=== PATIENT | male | born 1945 | race Caucasian/White ===

== ENCOUNTER → 2016-03-22 | Outpatient (CLI) | payer OTHER, MEDICARE ==
[~2016-03-22] MED LIST: AMLO-110 PO; AMXCH250 PO; ASPEC81 PO; ASPI81TA21 PO; CHOL100027 PO; CLOP1TAB15 PO; CRDCD120 PO; DILT120T3 PO; ENOX100I SC; FIBER PO; FLAXOIL2 PO; FURO20TA PO; IMDSR30 PO; ISOS30TA35 PO; LOSA1TAB PO; MULT-506 PO; NTRGSL/4 UT; OMEG12006 PO; PRAV80TA PO; RANO1000 PO; amiodarone IV
--- NOTE | 2016-03-22 12:42 | DIAGNOSTIC IMAGING REPORT ---
CT SCAN OF THE CHEST WITHOUT IV CONTRAST CLINICAL HISTORY: Follow-up pulmonary nodule. COMPARISON STUDY: Chest CT dated 11/02/2015. Abdominal CT dated 06/08/2005. TECHNIQUE: CT scan of the thorax was performed from the thoracic inlet to the upper abdomen. Images are reviewed in the axial, sagittal, and coronal planes. IV contrast was not administered for this examination as per the front clinician. CT DOSE: 556.78 mGy.cm FINDINGS: Thyroid: Imaged portions of the thyroid gland are normal in size and attenuation. Thoracic aorta: There is atherosclerotic calcification of the thoracic aorta, which is normal in caliber and demonstrates standard 3-vessel arch anatomy. Heart: The patient is status post midline sternotomy and aortic valve surgery. The heart is mildly enlarged and without pericardial effusion. The coronary arteries are densely calcified. Lungs and pleural spaces: Scarring with possible postoperative change is seen at the left apex. No airspace consolidation or pleural effusion is identified. There is a left apical granuloma. The right upper lobe nodular density seen on 11/02/2015 has resolved and was likely related to atelectasis/inflammation. No concerning pulmonary lesion is seen on today's examination. The trachea and central airways are clear. Mediastinum: There is no mediastinal lymphadenopathy. Reyna: Not well assessed without IV contrast. Axillae: There is no axillary lymphadenopathy. Upper abdomen: There is a tiny hiatal hernia. There is cortical atrophy of the partially imaged kidneys. Skeletal structures: The skeletal structures are osteopenic. Mild degenerative change is noted throughout the thoracic spine. No lytic or blastic bony lesions are seen. IMPRESSION: 1. There is no airspace consolidation or pleural effusion. 2. No concerning pulmonary lesion is identified. The pleural-based nodular density in the right upper lobe seen on 11/02/2015 has resolved and was likely related to inflammation/atelectasis. 3. Mild cardiac enlargement. 4. Additional findings as above. Electronically signed by: Ehsan Reynoso M.D. 03/22/2016 12:40 PM Dictated Date/Time: 03/22/2016 12:28 PM
== END | disposition home or self-care (01) ==
LOC: C.CTS 11:10
PROVIDERS: ATTEND Internal Medicine
DX: R91.1 Solitary pulmonary nodule (principal)

== ENCOUNTER → 2016-05-10 | Outpatient (CLI) | payer OTHER, MEDICARE ==
[2016-05-10 12:43] LABS: ALT/SGPT 29 U/L (12-78); BLOOD UREA NITROGEN 20 mg/dl (7-18); BUN/CREATININE RATIO 20.5 (10-20); CALCIUM 9.1 mg/dl (8.5-10.1); CARBON DIOXIDE 29 mmol/L (21-32); CHLORIDE 105 mmol/L (98-107); CHOLESTEROL 161 mg/dl (0-200); CREATININE 0.99 mg/dl (0.60-1.40); GLUCOSE 91 mg/dl (70-99); POTASSIUM 4.3 mmol/L (3.5-5.1); SODIUM 141 mmol/L (136-145); TRIGLYCERIDES 84 mg/dl (0-150); VERY LOW DENSITY LIPOPROT CALC 17 mg/dl
[2016-05-10 12:48] LABS: ALB/GLOB RATIO 1.3 (0.9-2); ALKALINE PHOSPHATASE 65 U/L (45-117); AST/SGOT 25 U/L (15-37); CHOLESTEROL/HDL RATIO 2.9; HDL CHOLESTEROL 55 mg/dl; LDL CHOLESTEROL CALCULATED 89 mg/dl
== END | disposition home or self-care (01) ==
LOC: C.LABBFT 07:44
PROVIDERS: ATTEND Internal Medicine
DX: E78.5 Hyperlipidemia, unspecified (principal); I10 Essential (primary) hypertension; I25.10 Atherosclerotic heart disease of native coronary artery without angina pectoris

== ENCOUNTER → 2016-09-05 | Outpatient (CLI) | payer OTHER, MEDICARE ==
--- NOTE | 2016-09-18 09:58 | CODING QUERY MEDICAL NECESSITY ---
SUPPORTING DIAGNOSIS NEEDED Dr. Canada, A supporting diagnosis is required for the test/procedure performed on this patient in order for us to be reimbursed by the patient's insurance. Please provide a supporting diagnosis for the following test/procedure listed below next to the test name along with your signature. *If there is no additional diagnosis for this patient that would support the following test/procedure please document that below next to the test/procedure. Test(s)/Procedure(s) that require a supporting diagnosis: * [id number] PSA DIAGNOSIS: DATE OF SERVICE: 09/05/16 Provider Signature: Date: Thank you Sam Pleitez [facility] Information Management Once completed, please kindly fax back to [phone] For questions please call [phone]
== END | disposition home or self-care (01) ==
LOC: C.LABBFT 09:54
PROVIDERS: ATTEND Urology
DX: N20.0 Calculus of kidney (principal); C61 Malignant neoplasm of prostate; N40.1 Benign prostatic hyperplasia with lower urinary tract symptoms

== ENCOUNTER 2016-09-19 14:53 | Observation (INO) | payer OTHER, MEDICARE ==
[~2016-09-19] VITALS: Ht 175.3 cm; Wt 88.9 kg
[~2016-09-19 14:53] MED LIST changes: -ASPI81TA21 PO; -CRDCD120 PO; -DILT120T3 PO; -IMDSR30 PO; -ISOS30TA35 PO
--- NOTE | 2016-09-19 15:44 | EMERGENCY ROOM VISIT NOTE ---
History First contact with patient: 15:09 Chief Complaint: CHEST PAIN Stated Complaint: CHEST PAIN SENT BY DR PALOMARES Nursing Triage Summary: Pt states hx heart surgery, getting SOB lately. Last night after feeding the birds he got very SOB, chest pain and took Nitro. The nitro helped. This am went to work, pain again, took nitro, got up and it started again so I took another nitro and when I got home Micheal's nurse said to take another so I did." Left side chest discomfort. "toothache in my left arm" History of Present Illness The patient is a 71 year old male with a past medical history of quadruple coronary artery bypass, 5 coronary artery stents, and cardiac ablation who presents to the Emergency Room with complaints of multiple episodes of chest pain. Last night the patient describes a feeling of chest pressure with left arm and shoulder weakness. He took a nitroglycerin and the episode resolved, but shortly thereafter resumed with less intensity. He describes the intensity last night was initially an 8 out of 10 with some radiation to the back as well as to his left shoulder. This morning he woke up and went to work and had similar chest pain with radiation and took another dose of nitroglycerin. The discomfort resolved but then quickly resumed, although the intensity was not as significant. He took another dose of nitroglycerin, and his discomfort did not resolve so he went home and called Dr. Palomares's office. They instructed him to come to the ED immediately. The patient states that he currently has 2 out of 10 chest discomfort that again feels like pressure over his chest with left shoulder weakness. She denies any shortness of breath, fever, chills, abdominal pain, nausea, vomiting, or any other acute symptoms. Review of Systems See HPI for pertinent positives and negatives. A total of ten systems were reviewed and were otherwise negative. Past Medical/Surgical History Medical Problems: (1) Prostate cancer Surgical Problems: (1) H/O heart artery stent (2) History of quadruple bypass Family History FH: CAD (coronary artery disease) Social History Smoking Status: Former Smoker Alcohol Use: none Marital Status: Housing Status: lives with family Current/Historical Medications Scheduled Amlodipine (Norvasc), 2.5 MG PO DAILY Aspirin Enteric Coated (Ecotrin Or Generic), 81 MG PO DAILY Cholecalciferol (Vitamin D 1000 Unit), 1,000 INTER.UNIT PO HS Clopidogrel (Plavix), 75 MG PO HS Flaxseed (Linseed) (Flax Oil), 1 TAB PO BID Furosemide (Lasix), 20 MG PO HS Losartan Potassium (Cozaar), 25 MG PO DAILY Multivitamin (Multivitamin), 1 TAB PO DAILY Nitroglycerin (Nitrostat), 0.4 MG UT PRN [place]-3 Fatty Acids ([place] 3), 1 CAP PO BID Pravastatin Sodium (Pravachol), 80 MG PO HS Ranolazine (Ranexa), 1,000 MG PO BID Allergies Coded Allergies: No Known Allergies (Verified , 09/19/16) Physical Exam Vital Signs Date Time Temp Pulse Resp B/P (MAP) Pulse Ox O2 Delivery O2 Flow Rate FiO2 09/19/16 16:46 76 18 128/72 98 Room Air 09/19/16 16:30 67 09/19/16 15:00 93 Room Air 09/19/16 14:55 36.7 75 18 145/84 93 Room Air Physical Exam GENERAL: Awake, alert, well-appearing, in no distress HENT: Normocephalic, atraumatic. Oropharynx unremarkable. EYES: Normal conjunctiva. Sclera non-icteric. NECK: Supple. No nuchal rigidity. RESPIRATORY: Clear to auscultation. CARDIAC: Regular rate, normal rhythm. Extremities warm and well perfused. Pulses equal. ABDOMEN: Soft, non-distended. No tenderness to palpation. No rebound or guarding. No masses. RECTAL: Deferred. MUSCULOSKELETAL: Chest examination reveals no tenderness. The back is symmetrical on inspection without obvious abnormality. LOWER EXTREMITIES: Calves are equal size bilaterally and non-tender. No edema. No discoloration. NEURO: Normal sensorium. No sensory or motor deficits noted. SKIN: No rash or jaundice noted. Medical Decision & Procedures Laboratory Results 09/19/16 16:00 Red Blood Count 4.23, Mean Corpuscular Volume 96.9, Mean Corpuscular Hemoglobin 32.4, Mean Corpuscular Hemoglobin Concent 33.4, Mean Platelet Volume 8.6, Neutrophils (%) (Auto) 50.4, Lymphocytes (%) (Auto) 33.3, Monocytes (%) (Auto) 11.1, Eosinophils (%) (Auto) 4.6, Basophils (%) (Auto) 0.3, Neutrophils # (Auto ) 2.96, Lymphocytes # (Auto) 1.96, Monocytes # (Auto) 0.65, Eosinophils # (Auto ) 0.27, Basophils # (Auto) 0.02 09/19/16 16:00 Test 09/19/16 15:34 09/19/16 16:00 Creatine Kinase MB Ratio (0-3.0) White Blood Count 5.88 K/uL (4.8-10.8) Red Blood Count 4.23 M/uL (4.7-6.1) Hemoglobin 13.7 g/dL (14.0-18.0) Hematocrit 41.0 % (42-52) Mean Corpuscular Volume 96.9 fL (80-100) Mean Corpuscular Hemoglobin 32.4 pg (25-34) Mean Corpuscular Hemoglobin Concent 33.4 g/dl (32-36) Platelet Count 177 K/uL (130-400) Mean Platelet Volume 8.6 fL (7.4-10.4) Neutrophils (%) (Auto) 50.4 % Lymphocytes (%) (Auto) 33.3 % Monocytes (%) (Auto) 11.1 % Eosinophils (%) (Auto) 4.6 % Basophils (%) (Auto) 0.3 % Neutrophils # (Auto) 2.96 K/uL (1.4-6.5) Lymphocytes # (Auto) 1.96 K/uL (1.2-3.4) Monocytes # (Auto) 0.65 K/uL (0.11-0.59) Eosinophils # (Auto) 0.27 K/uL (0-0.5) Basophils # (Auto) 0.02 K/uL (0-0.2) RDW Standard Deviation 45.8 fL (36.4-46.3) RDW Coefficient of Variation 13.0 % (11.5-14.5) Immature Granulocyte % (Auto) 0.3 % Immature Granulocyte # (Auto) 0.02 K/uL (0.00-0.02) Anion Gap 6.0 mmol/L (3-11) Est Creatinine Clear Calc Drug Dose 77.9 ml/min Estimated GFR () 88.6 Estimated GFR (Non- 76.5 BUN/Creatinine Ratio 18.9 (10-20) Calcium Level 9.2 mg/dl (8.5-10.1) Total Bilirubin 0.5 mg/dl (0.2-1) Aspartate Amino Transf (AST/SGOT) 25 U/L (15-37) Alanine Aminotransferase (ALT/SGPT) 31 U/L (12-78) Alkaline Phosphatase 66 U/L (45-117) Creatine Kinase MB 3.1 ng/ml (0.5-3.6) Troponin I < 0.015 ng/ml (0-0.045) Total Protein 7.0 gm/dl (6.4-8.2) Albumin 3.7 gm/dl (3.4-5.0) Globulin 3.3 gm/dl (2.5-4.0) Albumin/Globulin Ratio 1.1 (0.9-2) Medications Administered Medications (Trade) Dose Ordered Sig/Katey Route Start Time Stop Time Status Last Admin Dose Admin Nitroglycerin (Nitroglycerin 2% Oint) 1 inch NOW ONCE EXT 09/19/16 15:45 09/19/16 15:46 DC 09/19/16 16:13 1 INCH Medical Decision Patient is a 71 year old male that presents with multiple episodes of chest pain Etiologies such as cardiac ischemia, aortic dissection, pulmonary embolism, pneumonia, pneumothorax, musculoskeletal, infections, gastrointestinal, as well as others were entertained. Labs: CBC, BMP, Troponin, CKMB Medications: Nitro Paste Imaging: CXR EKG Impression Primary Impression: Exertional chest pain Additional Impressions: History of coronary artery bypass graft x 3 History of coronary artery stent placement Patient is a 71 year old male that presents with exertional chest pain - EKG appear unchanged from previous EKG last year - Troponin < 0.015 - CBC and CMP appear within normal limits - Remaining chest pain resolved with Nitro paste - Discussed patient with [facility] who will admit patient for evaluation Departure Information Dispostion Admitted as an inpatient Condition GOOD Referrals Jerry Roman M.D. (PCP) Patient Instructions My [facility] Problem Qualifiers
[2016-09-19] MEDS ORDERED: NITROGLYCERIN OINT 2% 1GM PACKET EXT ONE (15:45)
[2016-09-19] MEDS ORDERED: ASPI81TA21 PO (16:10)
[2016-09-19 16:11] LABS: BASO % 0.3 %; BASO ABS # 0.02 K/uL (0-0.2); COMPLETE YES; EOS % 4.6 %; IG% 0.3 %; LYMPH % 33.3 %; LYMPH ABS # 1.96 K/uL (1.2-3.4); MEAN CELL VOLUME 96.9 fL (80-100); MEAN CORPUSCULAR HEMOGLOBIN 32.4 pg (25-34); MEAN CORPUSCULAR HGB CONC 33.4 g/dl (32-36); MEAN PLATELET VOLUME 8.6 fL (7.4-10.4); MONO % 11.1 %; NEUT % 50.4 %; PLATELET COUNT 177 K/uL (130-400); RED BLOOD COUNT 4.23 M/uL (4.7-6.1); WHITE BLOOD COUNT 5.88 K/uL (4.8-10.8)
--- NOTE | 2016-09-19 16:26 | DIAGNOSTIC IMAGING REPORT ---
CHEST ONE VIEW PORTABLE CLINICAL HISTORY: 71 years-old Male presenting with Chest Pain. TECHNIQUE: Portable upright AP view of the chest was obtained. COMPARISON: Chest CT from March 30, 2016. FINDINGS: Median sternotomy wires, aortic valve prosthesis and mediastinal surgical clips again noted. Cardiomediastinal silhouette normal apart from suggestion of mild enlargement of the main pulmonary artery. Lungs and pleural spaces clear. Osseous structures and upper abdomen normal. IMPRESSION: 1. No convincing evidence of acute cardiopulmonary disease. Electronically signed by: Porfirio Bryant M.D. 09/19/2016 4:25 PM Dictated Date/Time: 09/19/2016 4:23 PM
[2016-09-19 16:28] LABS: ALT/SGPT 31 U/L (12-78); AST/SGOT 25 U/L (15-37); BLOOD UREA NITROGEN 19 mg/dl (7-18); BUN/CREATININE RATIO 18.9 (10-20); CALCIUM 9.2 mg/dl (8.5-10.1); CARBON DIOXIDE 30 mmol/L (21-32); CHLORIDE 106 mmol/L (98-107); GLUCOSE 80 mg/dl (70-99); POTASSIUM 3.8 mmol/L (3.5-5.1); SODIUM 142 mmol/L (136-145)
[2016-09-19 16:33] LABS: ALB/GLOB RATIO 1.1 (0.9-2); ALKALINE PHOSPHATASE 66 U/L (45-117)
--- NOTE | 2016-09-19 18:53 | History and Physical ---
History & Physical Date & Time of Service: Sep 19, 2016 at 18:35 Chief Complaint: Chest Pain Sent By Dr Burton Primary Care Physician: Jerry Roman M.D. History of Present Illness Source: patient 71 year old male with PMh of quadruple bypass, 5 stent placements and cardiac ablation presented with worsening chest pain. The chest pain started last night while he was walking out to take the garbage and when he was feeding his birds. The pain came on suddenly. He took a nitro and the pain subsided. It radiated to his shoulder blades, left neck and pain. He rated the pain as a 7/10. He then woke up this morning and when he went to work and started shoveling dirt he started having the chest pain. He took 2 nitros but the pain did not subside. He went home from work and phoned doctor abbie office and was instructed to come to the emergency department. He has never had chest pain at rest and will occasionally get chest pain on exertion, but he says he often stops before the chest pain occurs. He said he was able to walk for 45 minutes on the treadmill and not get any chest pain. He says he will occasionally get chest pain when walking up an incline. He has a history of quadruple bypass in 2011 and a valve replacement and he has had 5 stents placed between 2011 and 2014. He sees Dr. Burton every 3 months as an outpatient. He said his last echo was earlier this year. Past Medical/Surgical History Medical Problems: (1) Prostate cancer Permanent Comment: Rising PSA to 5.2 Status post ultrasound-guided biopsies revealing adenocarcinoma Nel 3+3, biopsy stage T2c Status post seed implant with cesium 131 as monotherapy 01/13/2010 Status: Resolved Family History FH: CAD (coronary artery disease) Mom had PA at 55 Dad had CHF and at 89 Social History Smoking Status: Former Smoker (40+pack years) Alcohol Use: none Drug Use: none Marital Status: Housing status: lives with family Occupational Status: employed Immunizations History of Influenza Vaccine: No History of Tetanus Vaccine?: Yes History of Pneumococcal: No History of Hepatitis B Vaccine: No Multi-Drug Resistant Organisms History of MDRO: No Allergies Coded Allergies: No Known Allergies (Verified , 09/19/16) Home Medications Scheduled Amlodipine (Norvasc), 2.5 MG PO DAILY Aspirin Enteric Coated (Ecotrin Or Generic), 81 MG PO DAILY Cholecalciferol (Vitamin D 1000 Unit), 1,000 INTER.UNIT PO HS Clopidogrel (Plavix), 75 MG PO HS Flaxseed (Linseed) (Flax Oil), 1 TAB PO BID Furosemide (Lasix), 20 MG PO HS Losartan Potassium (Cozaar), 25 MG PO DAILY Multivitamin (Multivitamin), 1 TAB PO DAILY Nitroglycerin (Nitrostat), 0.4 MG UT PRN [place]-3 Fatty Acids ([place] 3), 1 CAP PO BID Pravastatin Sodium (Pravachol), 80 MG PO HS Ranolazine (Ranexa), 1,000 MG PO BID Review of Systems Constitutional: No fever, No chills, No sweats Eyes: No worsening of vision, No diplopia ENT: No hearing loss Respiratory: No cough, No sputum, No shortness of breath, No dyspnea on exertion Cardiovascular: + chest pain, No orthopnea, No edema, No claudication, No palpitations Abdomen: No pain, No nausea, No vomiting Physical Exam Vital Signs Date Time Temp Pulse Resp B/P (MAP) Pulse Ox O2 Delivery O2 Flow Rate FiO2 09/19/16 16:46 76 18 128/72 98 Room Air 09/19/16 16:30 67 09/19/16 15:00 93 Room Air 09/19/16 14:55 36.7 75 18 145/84 93 Room Air General Appearance: WD/WN, no apparent distress Eyes: normal inspection, PERRL, sclerae normal ENT: hearing grossly normal, pharynx normal Neck: supple, no JVD, no carotid bruits Respiratory/Chest: lungs clear, no respiratory distress, no accessory muscle use Cardiovascular: regular rate, rhythm, no edema, normal peripheral pulses, + systolic murmur (2/6 murmur heard best at LUSB) Abdomen/GI: normal bowel sounds, non tender, soft Neurologic/Psych: normal mood/affect, oriented x 3 Skin: normal color, warm/dry, no rash Diagnostics Laboratory Results Results Past 24 Hours Test 09/19/16 15:34 09/19/16 16:00 Range/Units Creatine Kinase MB Ratio 0-3.0 White Blood Count 5.88 4.8-10.8 K/uL Red Blood Count 4.23 4.7-6.1 M/uL Hemoglobin 13.7 14.0-18.0 g/dL Hematocrit 41.0 42-52 % Mean Corpuscular Volume 96.9 80-100 fL Mean Corpuscular Hemoglobin 32.4 25-34 pg Mean Corpuscular Hemoglobin Concent 33.4 32-36 g/dl Platelet Count 177 130-400 K/uL Mean Platelet Volume 8.6 7.4-10.4 fL Neutrophils (%) (Auto) 50.4 % Lymphocytes (%) (Auto) 33.3 % Monocytes (%) (Auto) 11.1 % Eosinophils (%) (Auto) 4.6 % Basophils (%) (Auto) 0.3 % Neutrophils # (Auto) 2.96 1.4-6.5 K/uL Lymphocytes # (Auto) 1.96 1.2-3.4 K/uL Monocytes # (Auto) 0.65 0.11-0.59 K/uL Eosinophils # (Auto) 0.27 0-0.5 K/uL Basophils # (Auto) 0.02 0-0.2 K/uL RDW Standard Deviation 45.8 36.4-46.3 fL RDW Coefficient of Variation 13.0 11.5-14.5 % Immature Granulocyte % (Auto) 0.3 % Immature Granulocyte # (Auto) 0.02 0.00-0.02 K/uL Sodium Level 142 136-145 mmol/L Potassium Level 3.8 3.5-5.1 mmol/L Chloride Level 106 98-107 mmol/L Carbon Dioxide Level 30 21-32 mmol/L Anion Gap 6.0 3-11 mmol/L Blood Urea Nitrogen 19 7-18 mg/dl Creatinine 1.00 0.60-1.40 mg/dl Est Creatinine Clear Calc Drug Dose 77.9 ml/min Estimated GFR () 88.6 Estimated GFR (Non- 76.5 BUN/Creatinine Ratio 18.9 10-20 Random Glucose 80 70-99 mg/dl Calcium Level 9.2 8.5-10.1 mg/dl Total Bilirubin 0.5 0.2-1 mg/dl Aspartate Amino Transf (AST/SGOT) 25 15-37 U/L Alanine Aminotransferase (ALT/SGPT) 31 12-78 U/L Alkaline Phosphatase 66 45-117 U/L Creatine Kinase MB 3.1 0.5-3.6 ng/ml Troponin I < 0.015 0-0.045 ng/ml Total Protein 7.0 6.4-8.2 gm/dl Albumin 3.7 3.4-5.0 gm/dl Globulin 3.3 2.5-4.0 gm/dl Albumin/Globulin Ratio 1.1 0.9-2 CXR normal Impression Assessment and Plan 71 year old male with PMHx of quadruple bypass and 5 stents presented with chest pain Chest pain - admit to telemetry under observation - EKG with widened QRS and Right axis deviation - 1st troponin negative, follow serial troponins - continue nitro prn for chest pain CAD - history of quadruple bypass and 5 stents placed - aspirin, plavix, lasix, pravastatin, ranexa HTN - currently well controlled - norvasc and lasix HLD - pravastatin - check lipid panel Hx of Prostate Cancer (2009) - controlled and in remission DVT prophylaxis - TEDS Dispo - Telemetry Resident Physician Supervision Note: I was present with Dr. Hayes during the history and exam. I discussed the case with the resident and agree with the findings and plan as documented in the note. Any exceptions or clarifications are listed here: 71 y/o M extensive Hx of CAD Presenting with intermittent CP - he had a CABG in 2011 and 5 stents placed since then He is pain-free at the time of admission OE AAO x 3 S1,2 R CTAB NT, ND No CCE P: Will obtain serial enzymes Monitor overnight Will contact cardio if pain recurs or if f/u trop is + Above discussed with pt and resident Documented By: Aamir Christian Level of Care Telemetry VTE Prophylaxis VTE Risk Assessment Done? Y/N: Yes Risk Level: Moderate Given or contraindicated: T.E.D. Stockings
--- NOTE | 2016-09-19 18:57 | EMERGENCY ROOM VISIT NOTE ---
History Report prepared by Yanna: Danielle Sapp Under the Supervision of: Dr. Bulmaro Lao M.D. First contact with patient: 15:08 Chief Complaint: CHEST PAIN Stated Complaint: CHEST PAIN SENT BY DR BURTON Nursing Triage Summary: Pt states hx heart surgery, getting SOB lately. Last night after feeding the birds he got very SOB, chest pain and took Nitro. The nitro helped. This am went to work, pain again, took nitro, got up and it started again so I took another nitro and when I got home Micheal's nurse said to take another so I did." Left side chest discomfort. "toothache in my left arm" History of Present Illness The patient is a 71 year old male who presents to the Emergency Room with complaints of 2 episodes of left sided chest pain beginning last night. He rates his pain as 8/10 in severity. The patient states that last night he experienced an episode of chest pain. He describes the pain as a pressure sensation. He notes the pain radiated into his back and left shoulder. The patient took a Nitro which helped relieve the pain. He went to bed and this morning woke up feel well. He says he was at work shoveling dirt when he experienced another episode of chest pain. It was the same pain he experienced last night. The patient took a Nitro which did help for a few seconds until the pain returned. He called Dr. Burton's nurse who told him to take another Nitro and go to the ED. The patient states slight exertion when the pain began but notes he was not exerting himself more than normal. The patient did experience shortness of breath during the episodes. He denies any other symptoms at this time. He has an extensive cardiac history including Bypass and 5 stents. Source of History: patient Onset: last night Position: chest (left) Symptom Intensity: 8/10 Quality: pressure Timing: other (episode) Associated Symptoms: + SOB Note: He denies any other symptoms at this time. Review of Systems See HPI for pertinent positives & negatives. A total of 10 systems reviewed and were otherwise negative. Past Medical & Surgical Medical Problems: (1) Prostate cancer Surgical Problems: (1) H/O heart artery stent (2) History of quadruple bypass Family History FH: CAD (coronary artery disease) Social History Smoking Status: Former Smoker Alcohol Use: none Marital Status: Housing Status: lives with family Current/Historical Medications Scheduled Amlodipine (Norvasc), 2.5 MG PO DAILY Aspirin Enteric Coated (Ecotrin Or Generic), 81 MG PO DAILY Cholecalciferol (Vitamin D 1000 Unit), 1,000 INTER.UNIT PO HS Clopidogrel (Plavix), 75 MG PO HS Flaxseed (Linseed) (Flax Oil), 1 TAB PO BID Furosemide (Lasix), 20 MG PO HS Losartan Potassium (Cozaar), 25 MG PO DAILY Multivitamin (Multivitamin), 1 TAB PO DAILY Nitroglycerin (Nitrostat), 0.4 MG UT PRN Conway-3 Fatty Acids (Conway 3), 1 CAP PO BID Pravastatin Sodium (Pravachol), 80 MG PO HS Ranolazine (Ranexa), 1,000 MG PO BID Allergies Coded Allergies: No Known Allergies (Verified , 09/19/16) Physical Exam Vital Signs Date Time Temp Pulse Resp B/P (MAP) Pulse Ox O2 Delivery O2 Flow Rate FiO2 09/19/16 16:46 76 18 128/72 98 Room Air 09/19/16 16:30 67 09/19/16 15:00 93 Room Air 09/19/16 14:55 36.7 75 18 145/84 93 Room Air Physical Exam Constitutional: Vital signs reviewed. Eyes: Pupils are equal round reactive to light. Conjunctiva are noninjected. ENT: Pharynx is clear without erythema or exudate. Mucous membranes are moist. Neck supple without meningeal signs. Respiratory: Clear to auscultation bilaterally. Breath sounds are equal bilaterally. Cardiovascular: Regular rate and rhythm. No rubs or gallops. GI: Soft, nondistended and nontender. Bowel sounds are present. Musculoskeletal: No peripheral edema. No lower extremity tenderness. Integumentary: No cyanosis. Neurological: The patient is awake and alert. No focal deficits. Psychiatric: Normal affect. Medical Decision & Procedures ER Provider Diagnostic Interpretation: X-ray results as stated below per interpretation by me and the radiologist: CHEST ONE VIEW PORTABLE CLINICAL HISTORY: 71 years-old Male presenting with Chest Pain. TECHNIQUE: Portable upright AP view of the chest was obtained. COMPARISON: Chest CT from March 30, 2016. FINDINGS: Median sternotomy wires, aortic valve prosthesis and mediastinal surgical clips again noted. Cardiomediastinal silhouette normal apart from suggestion of mild enlargement of the main pulmonary artery. Lungs and pleural spaces clear. Osseous structures and upper abdomen normal. IMPRESSION: 1. No convincing evidence of acute cardiopulmonary disease. Electronically signed by: Porfirio Bryant M.D. 09/19/2016 4:25 PM Dictated Date/Time: 09/19/2016 4:23 PM Laboratory Results 09/19/16 16:00 Red Blood Count 4.23, Mean Corpuscular Volume 96.9, Mean Corpuscular Hemoglobin 32.4, Mean Corpuscular Hemoglobin Concent 33.4, Mean Platelet Volume 8.6, Neutrophils (%) (Auto) 50.4, Lymphocytes (%) (Auto) 33.3, Monocytes (%) (Auto) 11.1, Eosinophils (%) (Auto) 4.6, Basophils (%) (Auto) 0.3, Neutrophils # (Auto ) 2.96, Lymphocytes # (Auto) 1.96, Monocytes # (Auto) 0.65, Eosinophils # (Auto ) 0.27, Basophils # (Auto) 0.02 09/19/16 16:00 Test 09/19/16 15:34 09/19/16 16:00 Creatine Kinase MB Ratio (0-3.0) White Blood Count 5.88 K/uL (4.8-10.8) Red Blood Count 4.23 M/uL (4.7-6.1) Hemoglobin 13.7 g/dL (14.0-18.0) Hematocrit 41.0 % (42-52) Mean Corpuscular Volume 96.9 fL (80-100) Mean Corpuscular Hemoglobin 32.4 pg (25-34) Mean Corpuscular Hemoglobin Concent 33.4 g/dl (32-36) Platelet Count 177 K/uL (130-400) Mean Platelet Volume 8.6 fL (7.4-10.4) Neutrophils (%) (Auto) 50.4 % Lymphocytes (%) (Auto) 33.3 % Monocytes (%) (Auto) 11.1 % Eosinophils (%) (Auto) 4.6 % Basophils (%) (Auto) 0.3 % Neutrophils # (Auto) 2.96 K/uL (1.4-6.5) Lymphocytes # (Auto) 1.96 K/uL (1.2-3.4) Monocytes # (Auto) 0.65 K/uL (0.11-0.59) Eosinophils # (Auto) 0.27 K/uL (0-0.5) Basophils # (Auto) 0.02 K/uL (0-0.2) RDW Standard Deviation 45.8 fL (36.4-46.3) RDW Coefficient of Variation 13.0 % (11.5-14.5) Immature Granulocyte % (Auto) 0.3 % Immature Granulocyte # (Auto) 0.02 K/uL (0.00-0.02) Anion Gap 6.0 mmol/L (3-11) Est Creatinine Clear Calc Drug Dose 77.9 ml/min Estimated GFR () 88.6 Estimated GFR (Non- 76.5 BUN/Creatinine Ratio 18.9 (10-20) Calcium Level 9.2 mg/dl (8.5-10.1) Total Bilirubin 0.5 mg/dl (0.2-1) Aspartate Amino Transf (AST/SGOT) 25 U/L (15-37) Alanine Aminotransferase (ALT/SGPT) 31 U/L (12-78) Alkaline Phosphatase 66 U/L (45-117) Creatine Kinase MB 3.1 ng/ml (0.5-3.6) Troponin I < 0.015 ng/ml (0-0.045) Total Protein 7.0 gm/dl (6.4-8.2) Albumin 3.7 gm/dl (3.4-5.0) Globulin 3.3 gm/dl (2.5-4.0) Albumin/Globulin Ratio 1.1 (0.9-2) Laboratory results as reviewed by me. Medications Administered Medications (Trade) Dose Ordered Sig/Katey Route Start Time Stop Time Status Last Admin Dose Admin Nitroglycerin (Nitroglycerin 2% Oint) 1 inch NOW ONCE EXT 09/19/16 15:45 09/19/16 15:46 DC 09/19/16 16:13 1 INCH ECG Indication: chest pain Rate (beats per minute): 78 Rhythm: sinus rhythm Findings: 1st degree AV block, LBBB, no ectopy ED Course 1535: The patient was evaluated in room C1. A complete history and physical exam was performed. 1545: Nitroglycerin 2% Oint 1 inch EXT. 1730: Dr. Herrera spoke with Dr. Alfred of [facility] [place]. He discussed the patient and his results. The patient will be further evaluated by Dr. Tima CURRY. Medical Decision This is a 71-year-old male who presents with chest pain. Differential diagnosis includes unstable angina, AR, pleurisy, GERD, pneumonia. I did perform a limited focused review of portions of the patient's old chart on the electronic medical record. The patient has had no recent pertinent visits to this hospital. Medication Reconciliation: I attest that I have personally reviewed the patient' s current medication list. Blood Pressure Screening: Patient was found to have an elevated blood pressure and was referred to their primary doctor for recheck and further treatment. I did evaluate the patient as noted above. IV access was established. The patient was placed on a continuous quality assurance monitor. I did order and personally review the patient's 12-lead EKG and chest x-ray as described above. I did order and review the patient's blood work as noted in the electronic medical record. Initial troponin is negative. Given his prior history of cardiac stent and bypass and his symptoms of exertional chest pain relieved with nitroglycerin and rest I did feel hospitalization for further evaluation was indicated. The case was discussed with the hospitalist service. Resident Physician Supervision Note: I did evaluate and examine this patient myself. I did guide management for the patient. I agree with the resident's (Dr. Palacios) assessment as discussed. Please see the resident's dictation for further details. Impression Primary Impression: Exertional chest pain Scribe Attestation The scribe's documentation has been prepared under my direct and personally reviewed by me in its entirety. I confirm that the note above accurately reflects all work, treatment, procedures, and medical decision making performed by me. Departure Information Dispostion Being Evaluated By Hospitalist Referrals Jerry Roman M.D. (PCP)
[2016-09-19] MEDS ORDERED: IV FLUIDS COMPLETED PRN (19:15)
[2016-09-19 21:00] VITALS: BP 153/77; PULSE 67; TEMP 36.5; O2SAT 97; Ht 175.3 cm; Wt 88.9 kg
[2016-09-19 23:50] VITALS: BP 110/66; PULSE 66; TEMP 36.4; O2SAT 97
[2016-09-20 01:03] LABS: CKMB/CK RATIO 1.4 (0-3.0)
[2016-09-20 03:28] VITALS: BP 121/65; PULSE 64; TEMP 36.3; O2SAT 99
[2016-09-20 07:18] LABS: CKMB/CK RATIO 1.8 (0-3.0)
[2016-09-20 08:01] VITALS: BP 117/74; PULSE 73; TEMP 38; O2SAT 93
[2016-09-20] MEDS ORDERED: NITROGLYCERIN 0.4 MG SL PER TAB CHARGE UT SCH (08:30)
[2016-09-20] MEDS ORDERED: AMLODIPINE BESYLATE 5 MG TAB PO SCH (09:00)
[2016-09-20] MEDS ORDERED: MULTIVITAMIN TAB PO SCH (09:00)
[2016-09-20] MEDS ORDERED: LOSARTAN POTASSIUM 25 MG TAB PO SCH (09:00)
[2016-09-20] MEDS ORDERED: ASPIRIN 81 MG ECTAB PO SCH (09:00)
--- NOTE | 2016-09-20 09:18 | Cardiology Consultation ---
Cardiology Consultation Date of Consultation: Sep 20, 2016. Requesting Physician: Gino Attending Physician: Micheal Reason for Consultation: Unstable angina Pt evaluation today including: conversation w/ patient, chart review, lab review, review of studies, conversation w/ industrial methods consultant History of Present Illness Leo has had progressive anginal symptoms over the last week. He notes on Saturday night into Saturday he needed nitroglycerin when he went to feed the birds. One sublingual nitroglycerin relieved his symptoms. 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 He took one sublingual nitroglycerin with mild relief. He then went to walk to his truck and had more progressive angina and took a second subungual nitroglycerin. His was concerned about his symptoms and contacted the office. Given his progressive symptoms and recommended that he come to the hospital for further evaluation to make sure he was not having any acute coronary syndrome. Leo has had chronic angina and been relatively well controlled. He's been intolerant to beta blockers in the past due to significant fatigue. He's also been very reluctant to increase his medical regimen. Overall Leo is most frustrated that he can't do everything that he wants to do especially at work. He did have a URI couple weeks ago but did not require any medical therapy for that. Denies any PND orthopnea denies any rest angina. he denies any angina that's awoken from sleep. He has a palpitations lightheadedness dizziness presyncope or syncope has a lower extremity edema or symptoms of claudication. He denies a bleeding bruising dark stools or black stools on anticoagulation. This morning he is pain-free resting in bed without any anginal symptoms his color looks good and he feels well and wishes to go home immediately. He notes the only reason he came to the hospital is because we forced him to come. The rest of a complete Review of systems is negative PAST MEDICAL HISTORY: 1. Coronary artery disease status post coronary bypass grafting in 04/2011 with a SARMIENTO to the LAD and SVG to the OM, and SVG to the PDA, and SVG to the diagonal. 2. Status post angioplasty and stenting 07/2011 with Xience drug-eluting stents in the vein graft to D1 with a drug-eluting stent placed in the distal RCA and to the posterolateral branch. 3. Repeat angioplasty and stenting 05/2015 with left main stenting and stenting of the mid LAD with a small 70% lesion in a small ramus intermediate branch for medical therapy. 4. Chronic left bundle branch block. 5. History of mild ischemic cardiomyopathy,LVEF 50% 01/2016. 6. Hyperlipidemia. 7. 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 8. Postoperative atrial fibrillation, 9: 2:1 atrial flutter s/p flutter ablation 10/2015 MEDICATIONS: Reviewed in electronic record. SOCIAL HISTORY: Denies any tobacco or alcohol. 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 He is . FAMILY HISTORY: Positive for premature heart disease. He has 3 brothers who , 1 with renal failure. ALLERGIES: No known drug allergies. Intolerance to ENRIQUE inhibitors due to a cough, although he tolerate ARBs, intolerance of long-acting nitrates due to headaches and beta blockers due to fatigue. PHYSICAL EXAMINATION: GENERAL: He is awake, alert, oriented x3. He is not acutely in distress, although he does have some mild discomfort. VITAL SIGNS: His heart rate is 72. His respirations are 16. His blood pressure 117/74. His pulse ox 93% on room air. HEAD, EYES, EARS, NOSE, AND THROAT: Carotid upstrokes are moderately reduced as he does not have bruits. His jugular venous pressure appears slightly elevated. Sclerae is anicteric. His hearing is normal. LUNGS: Faint crackles in the bases bilaterally. No rhonchi or wheezing. HEART: Tachycardic (regular). There is a soft systolic ejection murmur at the right sternal border. There are no appreciable diastolic murmurs. ABDOMEN: Soft, nontender, nondistended, positive bowel sounds. He did not have any epigastric or umbilical pain. EXTREMITIES: No clubbing, cyanosis or edema. SKIN: No ecchymosis or bruising. NEUROLOGIC: Grossly nonfocal. Family History FH: CAD (coronary artery disease) Social History Smoking Status: Former Smoker History of Alcohol Use: No Allergies Coded Allergies: No Known Allergies (Verified , 09/19/16) Medications Current Inpatient Medications Medications (Trade) Dose Ordered Sig/Katey Route Start Time Stop Time Status Last Admin Dose Admin Miscellaneous (Iv Fluids Completed) 1 ea PRN PRN N/A 09/19/16 19:15 09/19/17 19:14 Amlodipine Besylate (Norvasc Tab) 2.5 mg DAILY PO 09/20/16 09:00 10/20/16 08:59 Aspirin (Ecotrin Tab) 81 mg DAILY PO 09/20/16 09:00 10/20/16 08:59 Cholecalciferol (Vitamin D Tab) 1,000 inter.unit HS PO 09/20/16 21:00 10/20/16 20:59 Clopidogrel Bisulfate (plAVix TAB) 75 mg HS PO 09/20/16 21:00 10/20/16 20:59 Furosemide (Lasix Tab) 20 mg HS PO 09/20/16 21:00 10/20/16 20:59 Losartan Potassium (coZAAR TAB) 25 mg DAILY PO 09/20/16 09:00 10/20/16 08:59 Multivitamins (Multivitamin Tab) 1 tab DAILY PO 09/20/16 09:00 10/20/16 08:59 Nitroglycerin (Nitrostat Tab) 0.4 mg PRN UT 09/20/16 08:30 10/20/16 08:29 Physical Exam Vital Signs Past 12 Hours Date Time Temp Pulse Resp B/P (MAP) Pulse Ox O2 Delivery O2 Flow Rate FiO2 09/20/16 08:01 38.0 73 18 117/74 (88) 93 Room Air 09/20/16 04:00 Room Air 09/20/16 03:28 36.3 64 16 121/65 (83) 99 Room Air 09/19/16 23:59 Room Air 09/19/16 23:50 36.4 66 18 110/66 (81) 97 Room Air Data Laboratory Results: Last 24 Hours Test 09/19/16 15:34 09/19/16 16:00 09/20/16 00:33 09/20/16 06:26 Creatine Kinase MB Ratio 1.4 1.8 White Blood Count 5.88 K/uL Red Blood Count 4.23 M/uL Hemoglobin 13.7 g/dL Hematocrit 41.0 % Mean Corpuscular Volume 96.9 fL Mean Corpuscular Hemoglobin 32.4 pg Mean Corpuscular Hemoglobin Concent 33.4 g/dl Platelet Count 177 K/uL Mean Platelet Volume 8.6 fL Neutrophils (%) (Auto) 50.4 % Lymphocytes (%) (Auto) 33.3 % Monocytes (%) (Auto) 11.1 % Eosinophils (%) (Auto) 4.6 % Basophils (%) (Auto) 0.3 % Neutrophils # (Auto) 2.96 K/uL Lymphocytes # (Auto) 1.96 K/uL Monocytes # (Auto) 0.65 K/uL Eosinophils # (Auto) 0.27 K/uL Basophils # (Auto) 0.02 K/uL RDW Standard Deviation 45.8 fL RDW Coefficient of Variation 13.0 % Immature Granulocyte % (Auto) 0.3 % Immature Granulocyte # (Auto) 0.02 K/uL Sodium Level 142 mmol/L Potassium Level 3.8 mmol/L Chloride Level 106 mmol/L Carbon Dioxide Level 30 mmol/L Anion Gap 6.0 mmol/L Blood Urea Nitrogen 19 mg/dl Creatinine 1.00 mg/dl Est Creatinine Clear Calc Drug Dose 77.9 ml/min Estimated GFR () 88.6 Estimated GFR (Non- 76.5 BUN/Creatinine Ratio 18.9 Random Glucose 80 mg/dl Calcium Level 9.2 mg/dl Total Bilirubin 0.5 mg/dl Aspartate Amino Transf (AST/SGOT) 25 U/L Alanine Aminotransferase (ALT/SGPT) 31 U/L Alkaline Phosphatase 66 U/L Creatine Kinase MB 3.1 ng/ml 1.9 ng/ml 2.3 ng/ml Troponin I < 0.015 ng/ml < 0.015 ng/ml < 0.015 ng/ml Total Protein 7.0 gm/dl Albumin 3.7 gm/dl Globulin 3.3 gm/dl Albumin/Globulin Ratio 1.1 Total Creatine Kinase 136 U/L 125 U/L Imaging: cxr negative EKG: nsr long first degree AVFB LBBB Telemetry reviewed: Assessment & Plan Impression: 1A. Unstable angina 1. Coronary artery disease status post coronary bypass grafting in 04/2011 with a SARMIENTO to the LAD and SVG to the OM, and SVG to the PDA, and SVG to the diagonal. 2. Status post angioplasty and stenting 07/2011 with Xience drug-eluting stents in the vein graft to D1 with a drug-eluting stent placed in the distal RCA and to the posterolateral branch. 3. Repeat angioplasty and stenting 05/2015 with left main stenting and stenting of the mid LAD with a small 70% lesion in a small ramus intermediate branch for medical therapy. 4. Chronic left bundle branch block. 5. History of mild ischemic cardiomyopathy,LVEF 50% 01/2016. 6. Hyperlipidemia. 7. 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 8. Postoperative atrial fibrillation, 9: 2:1 atrial flutter s/p flutter ablation 10/2015 Leo is having progressive anginal symptoms over the last week. He does not wish to remain in the hospital. His EKG is unchanged and his troponins are negative. He does not have any pain this morning. In addition he does not wish to consider repeat cardiac catheterization unless he has no other options. In the past Leo is been intolerant to beta blockers due to significant fatigue he also has been reluctant to change his medical regiment. I made the following recommendations: 1. Add imdur 30 mg daily. 2. Add diltiazem CD 120 mg daily. We will stop his Norvasc but have him remain on a calcium channel isa that will slow his heart rate to see if it improves his angina. Just going to the bathroom today his HR was in the 110- 120 range and I think he would benefit from AV aly blocking. We will have to watch that we do not make him excessively bradycardic or worsen his already significantly prolonged first-degree AV block 3. I would stop his losartan and discontinue his Nitropaste 4. He's remain on Ranexa thousand milligrams twice a day as well as Plavix and his anticoagulation. 5 he is not anemic. his chest x-ray is without heart failure or pneumonia. 6. With his medication adjustments, hopefully we can improve his symptoms. I would have him ambulate this afternoon if he can ambulate without significant angina then he can probably be discharged home as he is adamant that he does not wish to stay in the hospital. If he is discharged I will arrange for him to be seen tomorrow in the office before the weekend and we can try to adjust his medical regimen further. if he continues to have progressive anginal symptoms he will need a repeat cardiac catheterization. Additionally I discussed with Leo that he would benefit from EECP to improve his quality of life unfortunately that would mean a trip to [place] over the next 7 weeks and he does not wish to travel.
[2016-09-20] MEDS ORDERED: ISOSORBIDE MONONITRATE 30 MG TABCR PO SCH (09:30)
[2016-09-20] MEDS ORDERED: DILTIAZEM HCL 120 MG CAPCR PO SCH (09:30)
[2016-09-20] MEDS ORDERED: CRDCD120 PO (10:29)
[2016-09-20] MEDS ORDERED: IMDSR30 PO (10:29)
--- NOTE | 2016-09-20 10:34 | Discharge Instructions ---
Discharge Instructions Date of Service Sep 20, 2016. Admission Reason for Admission: Exertional Chest Pain Discharge Discharge Diagnosis / Problem: Chest Pain Discharge Goals Goal(s): Diagnostic testing, Screening Activity Recommendations Activity Limitations: per Instructions/Follow-up section . Instructions / Follow-Up Instructions / Follow-Up We monitoring you heart overnight and we watched your heart enzymes. Your heart enzymes were normal and we will be discharging you with a some changes in your medications. We will be adding imdur and diltiazem. You can pick these up at the pharmacy. We will be stopping your losartan and norvasc. Please follow up with Dr. Burton in his office. If you have any worsening chest pain or shortness of breath then please come back to the hospital Current Hospital Diet Patient's current hospital diet: AHA Diet (Heart Healthy) Discharge Diet Recommended Diet: AHA Diet (Heart Healthy) Pending Studies Studies pending at discharge: no Medical Emergencies . Who to Call and When: Medical Emergencies: If at any time you feel your situation is an emergency, please call 911 immediately. . Non-Emergent Contact Non-Emergency issues call your: Primary Care Provider, Development Manager . . "Provider Documentation" section prepared by Naren Alfred. . VTE Core Measure Inpt VTE Proph given/why not?: Max Jason
--- NOTE | 2016-09-20 10:43 | Discharge Summary ---
Discharge Summary Date of Service Sep 20, 2016. (Naren Alfred MD) Discharge Summary Admission Date: Sep 19, 2016 at 18:35 Discharge Date: Sep 20, 2016 Discharge Disposition: Home Principal Diagnosis: Chest Pain Immunizations: Have You Had Influenza Vaccine: No History of Tetanus Vaccine?: Yes History of Pneumococcal: No History of Hepatitis B Vaccine: No Consultations: Cardiology (Naren Alfred MD) Principal Diagnosis: angina (Sandro Yuen D.O.) Medication Reconciliation New Medications: Diltiazem HCl (Diltiazem Cd) 120 Mg Capcr 120 MG PO QAM for 30 Days, #30 TAB 1 Refill Isosorbide Mononitrate (Isosorbide Mononitrate ER) 30 Mg Tabcr 30 MG PO QAM for 30 Days, #30 TAB 1 Refill Continued Medications: Aspirin Enteric Coated (Ecotrin Or Generic) 81 Mg Tab 81 MG PO DAILY, TAB Cholecalciferol (Vitamin D 1000 Unit) 1,000 Unit Cap 1000 INTER.UNIT PO HS, CAP Clopidogrel (Plavix) 75 Mg Tab 75 MG PO HS, TAB Flaxseed (Linseed) (Flax Oil) 1 Oil Oil 1 TAB PO BID Furosemide (Lasix) 20 Mg Tab 20 MG PO HS, TAB Multivitamin (Multivitamin) Tab 1 TAB PO DAILY, TAB Nitroglycerin (Nitrostat) 0.4 Mg Tab 0.4 MG UT PRN, TAB Delcambre-3 Fatty Acids (Delcambre 3) 1 Cap Cap 1 CAP PO BID Pravastatin Sodium (Pravachol) 80 Mg Tab 80 MG PO HS Ranolazine (Ranexa) 1,000 Mg Tab 1000 MG PO BID Discontinued Medications: Amlodipine (Norvasc) 5 Mg Tab 2.5 MG PO DAILY, TAB Losartan Potassium (Cozaar) 25 Mg Tab 25 MG PO DAILY, TAB Discharge Exam Patient stable and with no events overnight Was seen by doctor fragin Did not have any chest pain, shortness of breath or left arm pain overnight. Review of Systems: Constitutional: No chills, No sweats Eyes: No worsening of vision Respiratory: No cough, No shortness of breath Cardiovascular: No chest pain, No edema, No palpitations Abdomen: No pain, No nausea, No vomiting, No diarrhea, No constipation Musculoskeletal: No joint pain, No muscle pain, No swelling, No calf pain Physical Exam: General Appearance: WD/WN, no apparent distress Neck: supple, no carotid bruits, + JVD (very mild elevation) Respiratory/Chest: lungs clear, no respiratory distress, no accessory muscle use Cardiovascular: regular rate, rhythm, normal peripheral pulses, + systolic murmur (murmur 2/6 at RUSB) Abdomen / GI: normal bowel sounds, non tender, soft Extremities: normal inspection, no pedal edema, non-tender Neurologic/Psychiatric: alert, normal mood/affect, oriented x 3 (Naren Alfrde MD) Hospital Course 71 year old male with PMHx of quadruple bypass and 5 stents presented with chest pain. 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 He was admitted to telemetry under observation. His troponins remained negative while in the hospital and his telemetry showed a rate of 69 with 1st degree block and BBB. Patient was seen by Cardiology in the morning. Overnight the patient remained asymptomatic denying any chest pain, shortness of breath and was able to walk around the chu without any symptoms. Dr. Burton made some changes to his medications and told the patient to follow up with him in the clinic. Dr. Burton added imdur 30mg PO, diltiazem 120mg daily and decided to stop the patients losartan and norvasc. Patient was discharged on 09/20 hemodynamically stable and asymptomatic. Total Time Spent: Less than 30 minutes This includes examination of the patient, discharge planning, medication reconciliation, and communication with other providers. (Naren Alfred MD) Resident Physician Supervision Note: I interviewed and examined the patient. Discussed with Dr. Alfred and agree with findings and plan as documented in the note. Any exceptions or clarifications are listed here: None Documented By: Sandro Yuen feeling better, med changes as per cardiology. walking without CP. wants to go home. vitals noted nad breathing unlabored no pallor or icterus troponins negative angina - med management only -- meds adjusted lifestyle discussed stable for home ongoing outpt management (Sandro Yuen, D.O.) Discharge Instructions Please refer to the electronic Patient Visit Report (Discharge Instructions) for additional information. (Naren Alfred MD) Additional Copies To Malcolm Burton DO; Jerry Roman M.D.
[2016-09-20 11:21] VITALS: BP 137/79; PULSE 68; TEMP 36.7; O2SAT 96
[2016-09-20] MEDS ORDERED: DILT120T3 PO (11:43)
[2016-09-20] MEDS ORDERED: ISOS30TA35 PO (11:44)
[2016-09-20 12:59] VITALS: BP 137/79; PULSE 68; TEMP 36.7; O2SAT 96
[2016-09-20 13:22] LABS: CKMB/CK RATIO 1.8 (0-3.0)
[2016-09-20] MEDS ORDERED: CHOLECALCIFEROL 1000 INTER.UNIT TAB PO SCH (21:00)
[2016-09-20] MEDS ORDERED: FUROSEMIDE 20 MG TAB PO SCH (21:00)
[2016-09-20] MEDS ORDERED: CLOPIDOGREL BISULFATE 75 MG TAB PO SCH (21:00)
[2016-09-20] MEDS ORDERED: RANOLAZINE 500 MG ER TAB PO SCH (21:00)
== END 2016-09-20 13:28 | disposition home or self-care (01) ==
LOC: C.EDB 14:54 → C.2T 18:35 → ENRESERV 18:46
PROVIDERS: ADMIT Internal Medicine; ATTEND Family Medicine
DX: R07.9 Chest pain, unspecified (principal); I25.10 Atherosclerotic heart disease of native coronary artery without angina pectoris; Z95.1 Presence of aortocoronary bypass graft; Z95.5 Presence of coronary angioplasty implant and graft; Z87.891 Personal history of nicotine dependence; Z79.82 Long term (current) use of aspirin; Z79.899 Other long term (current) drug therapy; I10 Essential (primary) hypertension; E78.5 Hyperlipidemia, unspecified; Z85.49 Personal history of malignant neoplasm of other male genital organs; Z82.49 Family history of ischemic heart disease and other diseases of the circulatory system

== ENCOUNTER → 2017-04-04 | Outpatient (CLI) | payer OTHER, MEDICARE ==
[~2017-04-04] MED LIST changes: -AMLO-110 PO; -AMXCH250 PO; -ASPEC81 PO; +ASPI81TA21 PO; +DILT120T3 PO; -ENOX100I SC; -FIBER PO; +ISOS30TA35 PO; -LOSA1TAB PO; -amiodarone IV
[2017-04-04 12:43] LABS: BASO % 0.2 %; BASO ABS # 0.01 K/uL (0-0.2); EOS % 1.6 %; HEMATOCRIT 45.4 % (42-52); HEMOGLOBIN 15.2 g/dL (14.0-18.0); IG# 0.01 K/uL (0.00-0.02); LYMPH % 13.3 %; LYMPH ABS # 0.83 K/uL (1.2-3.4); MEAN CELL VOLUME 98.3 fL (80-100); MEAN CORPUSCULAR HEMOGLOBIN 32.9 pg (25-34); MEAN CORPUSCULAR HGB CONC 33.5 g/dl (32-36); MEAN PLATELET VOLUME 9.5 fL (7.4-10.4); MONO % 7.4 %; MONO ABS # 0.46 K/uL (0.11-0.59); NEUT % 77.3 %; NEUT ABS # 4.83 K/uL (1.4-6.5); PLATELET COUNT 145 K/uL (130-400); RED CELL DISTRIBUTION WIDTH CV 13.7 % (11.5-14.5); RED CELL DISTRIBUTION WIDTH SD 48.7 fL (36.4-46.3); WHITE BLOOD COUNT 6.24 K/uL (4.8-10.8)
[2017-04-04 13:02] LABS: ALBUMIN 3.9 gm/dl (3.4-5.0); BLOOD UREA NITROGEN 25 mg/dl (7-18); CALCIUM 8.9 mg/dl (8.5-10.1); CARBON DIOXIDE 30 mmol/L (21-32); CREATININE 1.01 mg/dl (0.60-1.40); GLUCOSE 100 mg/dl (70-99); POTASSIUM 3.8 mmol/L (3.5-5.1); SODIUM 138 mmol/L (136-145)
[2017-04-04 13:08] LABS: HEMOGLOBIN A1C 5.4 % (4.5-5.6)
[2017-04-04 13:13] LABS: ALKALINE PHOSPHATASE 62 U/L (45-117); ALT/SGPT 34 U/L (12-78); AST/SGOT 29 U/L (15-37); CHOLESTEROL 139 mg/dl (0-200); LDL CHOLESTEROL CALCULATED 65 mg/dl; TOTAL PROTEIN 7.3 gm/dl (6.4-8.2)
== END | disposition home or self-care (01) ==
LOC: C.LABBFT 09:33
PROVIDERS: ATTEND Internal Medicine
DX: R73.01 Impaired fasting glucose (principal); I20.9 Angina pectoris, unspecified; E78.5 Hyperlipidemia, unspecified

== ENCOUNTER 2022-12-17 21:29 | Observation (INO) ==
[2022-12-17] MEDS ORDERED: ONDANSETRON INJ 2 MG/ML 2 ML VIAL ONE (21:43)
[2022-12-17] MEDS ORDERED: MoRPHine SULFATE 4 MG/ML 1 ML CARP\\VIAL IV STA ×2 (22:32→23:55)
--- NOTE | 2022-12-17 22:36 | Emergency Department Note ---
Impression & Plan Chest pain, Current use of terminal operations manager anticoagulation ED Provider Note Provider: Francis French MD DATE OF SERVICE: 12/17/2022 CHIEF COMPLAINT: Chest discomfort HISTORY OF PRESENT ILLNESS: Patient is a 77-year-old gentleman extensive cardiac history following at [facility] with Dr. Burton as well as the [facility] with CABG, 7 stents, atrial fibs on Eliquis, aortic valve r eplacement bioprosthetic, transient cardiomyopathy, and now mitral dysfunction undergoing evaluation for possible mitral clip at [facility] presenting with the onset of pain in the chest around 730 this evening. States he was in the basement moving some things around this came on. Pain in the center to left chest rating to left shoulder blade and left neck and left arm. Had some old nitroglycerin which she took 3 tablets of which did not help with the pain. No breathing issues or significant abdominal pain. Bit of nausea. EMS was called and gave full dose aspirin as well as 2 nitro sprays and 4 mg of Zofran. Patient's nausea is abated. Denies shortness of breath. Has been compliant with his Eliquis by report. Denies leg swelling. Denies trauma. Reports the nitro both his and once for EMS did not change his pain complaint in his chest. Reports fairly severe pain 8 out of 10. Reports this is similar to prior cardiac pain he had but this is quite severe. PAST MEDICAL HISTORY: As noted above MEDICATIONS: Reviewed home medications SOCIAL HISTORY: PHYSICAL EXAM: GENERAL: alert and oriented on stretcher appears mildly uncomfortable Head: normocephalic and atraumatic EYES: No injection, discharge or icterus. NECK: Trachea midline. Supple. ENT: Mucous membranes pink and moist. LUNGS: Airway patent. No retractions. Breath sounds clear HEART: Regular rate and rhythm. No chest wall tenderness ABDOMEN: Soft and non-tender, without guarding or rebound. SKIN: Acyanotic, warm, dry, without rashes EXTREMITIES: Without swelling, tenderness or deformity NEUROLOGICAL: No focal deficits. No aphasia. No facial droop or slurred speech. Ambulatory. EK bpm ventricular paced rhythm with an interventricular conduction delay. No acute ST segment elevation noted with inferior lateral T wave inversions and slight ST depression. QTc 505. CONTINUOUS CARDIAC MONITORING: was ordered and showed a heart rate of 60s bpm in ventricular paced rhythm 1 view chest x-ray by my interpretation: Evidence of prior sternotomy as well as pacemaker in place. Some slight cardiomegaly but no evidence of significant pleural effusions. No clear lung consolidation. A little bit of interstitial thickening but no johana pulmonary edema. Patient's laboratory studies and imaging reviewed. Differential includes Cardiac ischemia, aortic dissection, pulmonary embolism, pneumothorax, pneumonia, pericarditis, myocarditis, esophageal rupture, GERD, cholecystitis, pancreatitis, musculoskeletal, as well as other pathologies. IMPRESSION/MEDICAL DECISION MAKING: Patient appears uncomfortable. States pain similar to prior cardiac pain. States is not really producible with movement. Denies significant abdominal discomfort. Denies shortness of breath. Lower suspicion for VTE/PE given his use of Eliquis. EKG without obvious STEMI but is a paced rhythm limits interpretation to some degree. Has not had improvement of symptoms with nitro. Again extensive cardiac history as well as maintained on several medications including ranolazine. Did already receive full dose aspirin today. Did not take evening Eliquis. Chest x-ray completed without obvious pulmonary pathology such as pneumonia but some mild pulmonary edema noted but again denies shortness of breath. No significant widened mediastinum noted. No significant leg swelling and lower suspicion for acute CHF. Blood work here without significant leukocytosis. No significant anemia. No significant electrolyte abnormality. No evidence of hepatitis or pancreatitis based on labs. Initial troponin normal. Is having fairly significant pain however did have transient improvement with the dose of morphine. Given small amount additional morphine for pain control. Question with extensive cardiac history if this is an occult cardiac process. Given this discussed with him and his family and recommended observation. Hospitalist contacted. Will consider possible heparin drip given his need for anticoagulation and the fact he did not take his evening Eliquis with this ongoing chest pain. Discussed with the hospitalist team and then will order heparin drip. Repeat troponin noted with increased now rising to 34. Hospitalist team is aware of repeat troponin. DIAGNOSIS: Chest pain, long-term anticoagulation, history of CAD and CABG DISPOSITION: Hospitalist will evaluate Patient was agreeable with this plan. 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) Myocardial infarction (10/01/19) Sensorineural hearing loss (SNHL) of right ear with restricted hearing of left ear Sudden-onset sensorineural hearing loss Surgical History H/O aortic valve replacement History of coronary artery stent placement (10/02/19) History of prostate surgery S/P CABG x 4 Family History Mother Coronary heart disease Myocardial infarction Heart disease Father Coronary heart disease Hearing loss Brother Cancer Non-small cell cancer of left lung Other No family history of adverse response to anesthesia No family history of bleeding disorder Denies family history of Ovarian cancer Prostate cancer Breast cancer Colorectal cancer Social History Smoking Status: Former smoker Tobacco Type: Cigarettes Second Hand Exposure: No; Do You Dip or Chew Tobacco: No; Hx Alcohol Use: No Hx Substance Use: No Preferred Language: Persian Hearing Ability: Use of Hearing Aid Yarn Weigher Required: No marital status: Current Living Situation: Spouse current occupational status: retired Feels Safe at Home: Yes Childhood Exposure to Second-Hand Smoke: Yes Diet: low salt and other caffeine: Yes (soda2-3 cans daily) Dental Care, Regularly: Yes Physical Activity Frequency: Daily Physical Activity Frequency Comment: walk Seatbelt Use: always Sunscreen Use: Yes Assistive Devices: Glasses and Hearing Aid - Bilateral Allergies Allergies Allergy/AdvReac Type Severity Reaction Status Date / Time ENRIQUE Inhibitors Allergy Cough Verified 11/01/22 09:59 Home Meds Home Medications Medication Instructions Recorded Confirmed cholecalciferol (vitamin D3) 25 1,000 units PO DAILY 10/23/18 11/01/22 mcg (1,000 unit) tablet flaxseed oil 1,000 mg capsule 1,000 mg PO BID 10/24/18 11/01/22 multivitamin (Daily Multi-Vitamin 1 tab PO DAILY 10/24/18 11/01/22 tablet) nitroglycerin 0.4 mg sublingual 0.4 mg sublingual Q5M PRN chest 10/24/18 11/01/22 tablet pain #25 tabs omega-3 acid ethyl esters 1 gram 1 cap PO BID 10/24/18 11/01/22 capsule apixaban 5 mg tablet 5 mg PO BID 05/18/19 11/01/22 sacubitril 49 mg-valsartan 51 mg 1 tab PO BID 05/18/19 11/01/22 tablet (Entresto) magnesium oxide 400 mg PO DAILY 05/22/19 11/01/22 rosuvastatin 20 mg tablet 40 mg PO HS #30 tabs 05/22/19 11/01/22 furosemide 20 mg tablet 20 mg PO DAILY 09/21/19 11/01/22 metoprolol succinate 25 mg capsule 37.5 mg PO DAILY 09/21/19 11/01/22 sprinkle, ext. release 24 hr amiodarone 200 mg tablet 200 mg PO BID 10/23/21 11/01/22 amlodipine 2.5 mg tablet 2.5 mg PO DAILY 11/01/22 11/01/22 ranolazine 500 mg tablet,extended 500 mg PO BID 11/01/22 11/01/22 release,12 hr Results & Data (ED) Vital Signs Vital Signs - 24 hr 12/17/22 22:49 12/17/22 22:49 12/17/22 21:46 Temperature 36.5 C Temperature Source Oral Pulse Rate 63 63 Pulse Rate [Apical] 63 Respiratory Rate 12 12 18 Respiratory Effort / Characteristics Non-Labored Spontaneous Respiratory Depth Normal Respiratory Pattern Regular Blood Pressure 120/69 Blood Pressure [Right Arm] 122/77 Blood Pressure Mean 86 Blood Pressure Mean [Right Arm] 92 Blood Pressure Position Semi-fowlers Blood Pressure Position [Right Arm] Semi-fowlers Pulse Oximetry 91 93 95 Oxygen Delivery Method Room Air Room Air Room Air Sepsis Recent Fever Within 48 Hours No Sepsis New/Unexplained Change in Mental Status N/A Sepsis Action Taken by Nursing No Action Required 12/17/22 23:05 12/17/22 23:30 12/18/22 00:00 Temperature Temperature Source Pulse Rate 62 63 63 Pulse Rate [Apical] Respiratory Rate 16 16 16 Respiratory Effort / Characteristics Respiratory Depth Respiratory Pattern Blood Pressure 122/70 128/71 125/70 Blood Pressure [Right Arm] Blood Pressure Mean 87 90 88 Blood Pressure Mean [Right Arm] Blood Pressure Position Blood Pressure Position [Right Arm] Pulse Oximetry 92 92 93 Oxygen Delivery Method Sepsis Recent Fever Within 48 Hours Sepsis New/Unexplained Change in Mental Status Sepsis Action Taken by Nursing Laboratory Data 12/17/22 21:44 10/09/23 21:44 Lab Results 12/17/22 12/17/22 12/17/22 Range/Units 21:44 21:44 21:44 WBC 6.52 (4.8-10.8) K/ul RBC 4.32 L (4.70-6.10) M/uL Hgb 13.5 L (14.0-18.0) g/dl Hct 41.1 L (42.0-52.0) % MCV 95.1 (80.0-100.0) fL MCH 31.3 (25.0-34.0) pg MCHC 32.8 (32.0-36.0) g/dL RDW Std Deviation 47.4 H (36.4-46.3) fL RDW Coeff of Jozef 13.4 (11.5-14.5) % Plt Count 120 L (130-400) K/uL MPV 9.1 L (9.4-12.4) fL Immature Gran % (Auto) 0.2 % Neut % (Auto) 52.4 % Lymph % (Auto) 29.3 % Twiggs % (Auto) 14.1 % Eos % (Auto) 3.5 % Baso % (Auto) 0.5 % Neut # (Auto) 3.42 (1.40-6.50) K/uL Lymph # (Auto) 1.91 (1.20-3.40) K/uL Twiggs # (Auto) 0.92 H (0.11-0.59) K/uL Eos # (Auto) 0.23 (0.00-0.50) K/uL Baso # (Auto) 0.03 (0.00-0.20) K/uL Immature Gran # (Auto) 0.01 (0.01-0.20) K/uL PT 11.4 (9.0-12.0) Seconds INR 1.0 (0.9-1.1) APTT 26.2 (21.0-31.0) Seconds PTT Ratio 0.9 Sodium 137 (136-145) mmol/L Potassium 3.9 (3.5-5.1) mmol/L Chloride 102 (98-107) mmol/L Carbon Dioxide 29 (21-32) mmol/L Anion Gap 6 (3-11) BUN 23 (6-23) mg/dl Creatinine 1.02 (0.6-1.4) mg/dl Est Cr Clr Drug Dosing 62.6 ml/min Est GFR ( Amer) 82.9 ml/min Est GFR (Non-Af Amer) 71.6 ml/min BUN/Creatinine Ratio 22.5 H (10-20) Glucose 124 H (70-99(Fasting)) mg/dl Calcium 9.1 (8.6-10.3) mg/dl Total Bilirubin 0.6 (0.2-1.0) mg/dl AST 31 (13-39) U/L ALT 26 (7-52) U/L Alkaline Phosphatase 60 (34-104) U/L Troponin I High Sens 9.1 (0-20) pg/ml Total Protein 6.6 (6.0-8.3) gm/dl Albumin 4.0 (3.4-5.0) gm/dl Globulin 2.6 (2.5-4.0) gm/dl Albumin/Globulin Ratio 1.5 (0.9-2) Lipase 16 (11-82) U/L 12/17/22 Range/Units 23:58 WBC (4.8-10.8) K/ul RBC (4.70-6.10) M/uL Hgb (14.0-18.0) g/dl Hct (42.0-52.0) % MCV (80.0-100.0) fL MCH (25.0-34.0) pg MCHC (32.0-36.0) g/dL RDW Std Deviation (36.4-46.3) fL RDW Coeff of Jozef (11.5-14.5) % Plt Count (130-400) K/uL MPV (9.4-12.4) fL Immature Gran % (Auto) % Neut % (Auto) % Lymph % (Auto) % Twiggs % (Auto) % Eos % (Auto) % Baso % (Auto) % Neut # (Auto) (1.40-6.50) K/uL Lymph # (Auto) (1.20-3.40) K/uL Twiggs # (Auto) (0.11-0.59) K/uL Eos # (Auto) (0.00-0.50) K/uL Baso # (Auto) (0.00-0.20) K/uL Immature Gran # (Auto) (0.01-0.20) K/uL PT (9.0-12.0) Seconds INR (0.9-1.1) APTT (21.0-31.0) Seconds PTT Ratio Sodium (136-145) mmol/L Potassium (3.5-5.1) mmol/L Chloride (98-107) mmol/L Carbon Dioxide (21-32) mmol/L Anion Gap (3-11) BUN (6-23) mg/dl Creatinine (0.6-1.4) mg/dl Est Cr Clr Drug Dosing ml/min Est GFR ( Amer) ml/min Est GFR (Non-Af Amer) ml/min BUN/Creatinine Ratio (10-20) Glucose (70-99(Fasting)) mg/dl Calcium (8.6-10.3) mg/dl Total Bilirubin (0.2-1.0) mg/dl AST (13-39) U/L ALT (7-52) U/L Alkaline Phosphatase (34-104) U/L Troponin I High Sens 34.8 H D (0-20) pg/ml Total Protein (6.0-8.3) gm/dl Albumin (3.4-5.0) gm/dl Globulin (2.5-4.0) gm/dl Albumin/Globulin Ratio (0.9-2) Lipase (11-82) U/L Administered Medications Heparin Sodium/Dextrose (Heparin Sodium/Dextrose) 25,000 units in 500 mls @ 27 mls/hr IV .[id number] [facility]; Protocol Stop: 01/17/23 00:44 Last Admin: 12/18/22 00:52 Dose: 1,350 units/hr, 27 mls/hr Documented By: CHELLY Co-signed By: ASW Discontinued Medications Heparin Sodium/Dextrose (Heparin Iv Adult Wt-Based Standard *No* Bolus Protocol) 1 each IV ONE STA; Protocol Stop: 12/18/22 00:31 Last Admin: 12/18/22 00:52 Dose: Not Given Documented By: CHELLY Heparin Sodium/Dextrose (Heparin 43393 Unit/500 Ml D5w) Confirm Administered Dose 25,000 units IV .STK-MED ONE Stop: 12/18/22 00:40 Last Admin: 10/10/23 00:52 Dose: Not Given Documented By: CHELLY Morphine Sulfate (Morphine Sulfate 4 Mg/Ml 1 Ml Carp\Vial) 4 mg IV NOW STA Stop: 12/17/22 22:33 Last Admin: 12/17/22 22:46 Dose: 4 mg Documented By: AB Morphine Sulfate (Morphine Sulfate 4 Mg/Ml 1 Ml Carp\Vial) 4 mg IV NOW STA Stop: 12/17/22 23:56 Last Admin: 12/18/22 00:04 Dose: 4 mg Documented By: CHELLY Ondansetron HCl (Ondansetron Inj 2 Mg/Ml 2 Ml Vial) Confirm Administered Dose 4 mg .ROUTE .STK-MED ONE Stop: 12/17/22 21:44 Last Admin: 12/17/22 22:51 Dose: Not Given Documented By: Discharge Plan Visit Data Chief Complaint: Chest Pain Stated Complaint: CHEST PAIN ED Provider: Francis French Discharge Problem: Chest pain, Current use of terminal operations manager anticoagulation Patient Disposition: Being Evaluated by Hospitalist Forms Stand Alone Forms: [facility] Prescriptions Prescriptions: No Action Entresto 49-51 mg tablet 1 tab PO BID amiodarone 200 mg tablet 200 mg PO BID ranolazine 500 mg tablet extended release 12 hr 500 mg PO BID amlodipine 2.5 mg tablet 2.5 mg PO DAILY magnesium oxide 400 mg magnesium capsule 400 mg PO DAILY cholecalciferol (vitamin D3) 1,000 unit (25 mcg) tablet 1,000 units PO DAILY multivitamin [Daily Multi-Vitamin] tablet 1 tab PO DAILY nitroglycerin 0.4 mg tablet, sublingual 0.4 mg SL Q5M PRN (Reason: chest pain) Qty: 25 omega-3 acid ethyl esters 1 gram capsule 1 cap PO BID flaxseed oil 1,000 mg capsule 1,000 mg PO BID apixaban 5 mg tablet 5 mg PO BID rosuvastatin 20 mg tablet 40 mg PO HS Qty: 30 metoprolol succinate 25 mg capsule,sprinkle,ER 24hr 37.5 mg PO DAILY furosemide 20 mg tablet 20 mg PO DAILY Referrals Referrals: Jerry Roman MD [Primary Care Provider] -
[2022-12-17 22:55] LABS: Basophils # (auto) 0.03 K/uL (0.00-0.20); Basophils % (auto) 0.5 %; Eosinophils # (auto) 0.23 K/uL (0.00-0.50); Eosinophils % (auto) 3.5 %; Hematocrit (blood only) 41.1 % (42.0-52.0); Hemoglobin 13.5 g/dl (14.0-18.0); Immature Granulocytes # (auto) 0.01 K/uL (0.01-0.20); Immature Granulocytes % (auto) 0.2 %; Lymphocytes # (auto) 1.91 K/uL (1.20-3.40); Lymphocytes % (auto) 29.3 %; Mean Corpuscular Hemoglobin 31.3 pg (25.0-34.0); Mean Corpuscular Hgb Conc 32.8 g/dL (32.0-36.0); Mean Corpuscular Volume 95.1 fL (80.0-100.0); Mean Platelet Volume 9.1 fL (9.4-12.4); Monocytes # (auto) 0.92 K/uL (0.11-0.59); Monocytes % (auto) 14.1 %; Neutrophils # (auto) 3.42 K/uL (1.40-6.50); Neutrophils % (auto) 52.4 %; Platelet Count 120 K/uL (130-400); RDW Coefficient of Variation 13.4 % (11.5-14.5); RDW Standard Deviation 47.4 fL (36.4-46.3); Red Blood Count 4.32 M/uL (4.70-6.10); White Blood Count 6.52 K/ul (4.8-10.8)
[2022-12-17 23:09] LABS: Albumin Globulin Ratio 1.5 (0.9-2); BUN Creatinine Ratio 22.5 (10-20); Bilirubin,Total 0.6 mg/dl (0.2-1.0); Calcium 9.1 mg/dl (8.6-10.3); Creatinine Clr Calc Pharmacy 62.6 ml/min; Est GFR (African American) 82.9 ml/min; Est GFR (Non-African American) 71.6 ml/min; Globulin 2.6 gm/dl (2.5-4.0); Potassium 3.9 mmol/L (3.5-5.1); Total Protein 6.6 gm/dl (6.0-8.3)
[2022-12-17 23:16] LABS: Troponin I High Sensitivity 9.1 pg/ml (0-20)
[2022-12-17 23:24] LABS: Partial Thromboplastin Ratio 0.9; Partial Thromboplastin Time 26.2 Seconds (21.0-31.0); Prothrombin Time 11.4 Seconds (9.0-12.0)
--- NOTE | 2022-12-18 00:26 | History & Physical Report ---
Date of Service December 18, 2022 Assessment & Plan (1) Chest pain: Plan: 77yo Male with PMH HTN HLD, hx aortic valve replacement, CAD s/p CABGx4 and stent placement x7, pAfib, aflutter, pacer, prostate cancer s/p seed implant here for concern chest pain. Chest Pain -in the setting of extensive cardiac history. Concern ruptured chordae tendineae, endocarditis, HF exacerbation, NSTEMI -patient received nitrox5 and aspirin 324mg total without improvement of sympt oms -received morphine total 8mg IV -trop 9.1 repeat 34.8, repeat pending -EKG: ventricularly paced -CXR: concern for pulmonary edema on left lower lung field -admit to PCU -consulted cardiology Dr. Burton -started heparin drip no bolus -ordered echo -NPO HTN, CAD, HF -echo ordered -continue lasix -continue metoprolol succinate, entresto -continue rosuvastatin -continue plavix -continue amlodipine -continue ranolazine Hx. Afib Aflutter -continue amiodarone -hold eliquis -continue heparin drip FENa: NPO Code Status: Full DVT PPX: heparin drip PT/OT: ordered Dispo: PCU Fidelia Gonzalez D.O. PGY 3, FCM (2) CAD (coronary atherosclerotic disease): (3) Hyperlipidemia: (4) Hypertension: (5) Prostate cancer: (6) Atrial flutter: History of Present Illness Chief Complaint: Chest Pain Primary Care Provider: Jerry Roman MD 77yo Male with PMH HTN HLD, hx aortic valve replacement, CAD s/p CABGx4 and stent placement x7, pAfib, aflutter, prostate cancer s/p seed implant here for concern chest pain. Patient states at 6:30pm he noted left sided chest pain radiating down his left arm, left shoulder blade and neck. States it felt similar to his usual episodes of angina, however it did not resolve on its own continued to worsen. Patient took 3 of nitro, received additional 2 nitro on ambulance, did not improve his pain. He also took 4 baby aspirin. Patient states he has some difficult with deep inspiration at this time also starting from this evening, denies any fever abd pain swelling in extremities. He cannot recall any inciting event, had prolonged car ride today, regularly eats low sodium diet prepared by . No recent changes in medications. 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 In ED patient received morphine 8mg IV total which helped improve his chest pain. Patient states he understands his current condition but may forget shortly, relies on for medication management. He took his eliquis this morning, did not take evening dose. Last procedure Angioplasty with stenting September 2022. Had a recent echo for concern mitral valve stenosis, with planned procedure mitral clip next week. Allergies Allergy/AdvReac Type Severity Reaction Status Date / Time ENRIQUE Inhibitors Allergy Cough Verified 11/01/22 09:59 Nitrate Analogues Allergy Unknown Verified 12/18/22 01:13 Home Medications Medication Instructions Recorded Confirmed Type cholecalciferol (vitamin D3) 25 1,000 units PO DAILY 10/23/18 11/01/22 History mcg (1,000 unit) tablet flaxseed oil 1,000 mg capsule 1,000 mg PO BID 10/24/18 11/01/22 History multivitamin (Daily Multi-Vitamin 1 tab PO DAILY 10/24/18 11/01/22 History tablet) nitroglycerin 0.4 mg sublingual 0.4 mg sublingual Q5M PRN chest 10/24/18 11/01/22 History tablet pain #25 tabs omega-3 acid ethyl esters 1 gram 1 cap PO BID 10/24/18 11/01/22 History capsule apixaban 5 mg tablet 5 mg PO BID 05/18/19 11/01/22 History sacubitril 49 mg-valsartan 51 mg 1 tab PO BID 05/18/19 11/01/22 History tablet (Entresto) magnesium oxide 400 mg PO DAILY 05/22/19 11/01/22 History rosuvastatin 20 mg tablet 40 mg PO HS #30 tabs 05/22/19 11/01/22 History furosemide 20 mg tablet 20 mg PO DAILY 09/21/19 11/01/22 History metoprolol succinate 25 mg capsule 37.5 mg PO DAILY 09/21/19 11/01/22 History sprinkle, ext. 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) Myocardial infarction (10/01/19) Sensorineural hearing loss (SNHL) of right ear with restricted hearing of left ear Sudden-onset sensorineural hearing loss Surgical History H/O aortic valve replacement History of coronary artery stent placement (10/02/19) History of prostate surgery S/P CABG x 4 Family History Mother Coronary heart disease Myocardial infarction Heart disease Father Coronary heart disease Hearing loss Brother Cancer Non-small cell cancer of left lung Other No family history of adverse response to anesthesia No family history of bleeding disorder Denies family history of Ovarian cancer Prostate cancer Breast cancer Colorectal cancer Social History Smoking Status: Former smoker Tobacco Type: Cigarettes Second Hand Exposure: No; Do You Dip or Chew Tobacco: No; Hx Alcohol Use: No Hx Substance Use: No Preferred Language: Belarusian Hearing Ability: Use of Hearing Aid Legend Maker Required: No marital status: Current Living Situation: Spouse current occupational status: retired Feels Safe at Home: Yes Childhood Exposure to Second-Hand Smoke: Yes Diet: low salt and other caffeine: Yes (soda2-3 cans daily) Dental Care, Regularly: Yes Physical Activity Frequency: Daily Physical Activity Frequency Comment: walk Seatbelt Use: always Sunscreen Use: Yes Assistive Devices: Glasses and Hearing Aid - Bilateral Physical Exam Constitutional: well developed, well nourished, cooperative and comfortable Eyes: PERRL, conjunctivae normal, anicteric sclerae ENMT: external ear and nose normal, oropharynx normal Neck: trachea midline, no thyromegaly Respiratory: normal respiratory effort Auscultation: + crackles (inspirator y in b/l lower lungs) Cardiovascular: Rate/Rhythm: regular rate and regular rhythm Extremities: no calf tenderness and no edema Gastrointestinal (Abdomen): Inspection/Auscultation: abdomen normal to inspection Percussion/Palpation: abdomen soft; abdomen nontender Skin: no rashes, warm and dry Results & Data Results & Data Vital Signs (Past 12 Hours) Vital Signs Temp Pulse Pulse Resp BP BP Pulse Ox 12/18/22 00:00 63 16 125/70 93 12/17/22 23:30 63 16 128/71 92 12/17/22 23:05 62 16 122/70 92 12/17/22 21:46 36.5 C 63 18 120/69 95 12/17/22 22:49 63 12 122/77 93 12/17/22 22:49 63 12 91 O2 Del Method 12/18/22 00:00 12/17/22 23:30 12/17/22 23:05 12/17/22 21:46 Room Air 12/17/22 22:49 Room Air 12/17/22 22:49 Room Air Supervising Physician Co-Signing Physician Notes Attending addendum: I have physically seen this patient, have supervised the medical residents activities, and agree with the H&P unless as otherwise noted. Assessment and Plan: Chest pain/hypertension/CAD/cardiomyopathy/history AVR/atrial fib/flutter- The patient will be admitted to telemetry for serial cardiac enzymes, serial EKG's, cardiac rhythm monitoring and a 2-D echocardiogram with Dopplers. Initial troponin 9.1 with follow-up pending Hold Eliquis, with last dose having been the morning dose of 10/9 Start heparin drip without bolus Potential causes including but not limited to: Type I process, type II process, possible endocarditis with having had urologic procedure done a few months ago, chordae tendonae dysfunction of known mitral stenosis NPO except essential medications until seen by cardiology in a.m. Consult cardiology Resident Activity Tracking Resident Involvement: Resident Care Provided Care Provided: Adult Hospital Medicine
[2022-12-18] MEDS ORDERED: Heparin IV Adult Wt-Based Standard *NO* Bolus Protocol IV STA (00:30)
[2022-12-18] MEDS ORDERED: HEPARIN 25000 UNIT/500 ML D5W IV ONE (00:39)
[2022-12-18] MEDS: HEPARIN SODIUM/DEXTROSE 25,000 UNITS/500 ML BAG IV SCH ×2 (00:52→19:55)
[2022-12-18] MEDS ORDERED: POLYETHYLENE (MIRALAX) 17 GM PACK PO PRN (02:53)
[2022-12-18] MEDS ORDERED: ACETAMINOPHEN 325 MG TAB PO PRN (02:53)
--- NOTE | 2022-12-18 03:35 | Billing Data ---
Date of Service December 18, 2022 Coding Level of Care Code 17427 INT INP/OBS CARE
--- NOTE | 2022-12-18 07:37 | XRay Report ---
XR chest 1V portable HISTORY: Chest pain, nonspecific COMPARISON: Chest 09/19/2016. FINDINGS: The heart remains enlarged. No pleural effusions. No pneumothorax. Left-sided pacemaker, po ststernotomy changes, and a cardiac valve prosthesis. There is mild central pulmonary vascular conges tion without overt edema. This has progressed in the interval. No new focal lung consolidations to estrada ggest a pneumonia. No acute fractures identified. IMPRESSION: Cardiomegaly and mild pulmonary vascular congestion. ACT 112: Negative or not required by law. Electronically signed by: Radames Palacios M.D. 12/18/2022 7:36 AM
[2022-12-18 08:21] LABS: Partial Thromboplastin Ratio 2.3
[2022-12-18 08:23] LABS: Partial Thromboplastin Time 65.2 Seconds (21.0-31.0)
[2022-12-18] MEDS: FUROSEMIDE 20 MG TAB PO SCH (09:12)
[2022-12-18] MEDS: AMIODARONE 200 MG TAB PO SCH ×2 (09:12→19:57)
[2022-12-18] MEDS: METOPROLOL SUCC 25MG EXT REL TAB PO SCH (09:13)
[2022-12-18] MEDS: MAGNESIUM OXIDE 400 MG TAB PO SCH (09:13)
[2022-12-18] MEDS: VALSARTAN/SACUBITRIL 51/49 MG TAB PO SCH ×2 (09:16→19:56)
--- NOTE | 2022-12-18 09:29 | Cardiology Consultation ---
Date of Consultation December 18, 2022 Assessment & Plan (1) NSTEMI (non-ST elevated myocardial infarction): (2) Chest pain: (3) Current use of long term care pharmacist anticoagulation: (4) Hypertension: (5) Hyperlipidemia: (6) CAD (coronary atherosclerotic disease): (7) Atrial flutter: (8) Cardiomyopathy: Plan History: 1. Coronary artery disease, status post coronary artery bypass grafting and bioprosthetic aortic valve replacement with a SARMIENTO to LAD, SVG to the OM, SVG to the PDA and an SVG to the diagonal, 06/2011. 2. Status post angioplasty and stenting (08/02/2011) with two Xience drug- eluting stents in the vein graft to D1 and a drug-eluting stent in the distal RCA into the posterolateral branch. a. Status post cardiac catheterization 03/2013 with a 70% RAMUS intermediate branch lesion and a 60% mid LAD lesion, which is not hemodynamically significant by FFR. b. Moderately reduced left ventricular systolic function by echo 04/2018 with an EF in the range of 40%, dilated right ventricle with severe RV dysfunction, type 3 diastolic dysfunction, severe pulmonary hypertension. c. Cardiac catheterization 05/2015 status post angioplasty and stenting of the left main and mid-LAD with a small 70% lesion and a small ramus intermediate branch for medical therapy. d. Cardiac catheterization 10/2016 with greater than 50% stenosis within the stented segment of the vein graft of the first diagonal branch with a focal 70% lesion status post 8 mm drug-eluding stent. e. Status post angioplasty of the vein graft to the diagonal with a noncompliant balloon with a residual 30-40% narrowing (the stent was measured at 2.5 mm by IVUS and a 5-mm vein graft) (at [facility] 06/2017). f. Status post laser therapy and brachytherapy involving the vein graft to the diagonal branch at [facility], 10/2017. g. Status post non-ST elevation myocardial infarction 09/2019 with two drug- eluting stents placed to the ostium of the SVG to the diagonal branch. h. Status post POBA of the ostial portion of the vein graft to D1 (spring 2021). i. Status post brachytherapy of the vein graft to the diagonal branch at [facility] 08/2021. J. Status post angioplasty and stenting with a Cutting Balloon and a high- pressure compliant balloon and involving the proximal mid and distal vein graft to the diagonal branch with associated repeat brachytherapy (September 2022) 3. Hyperlipidemia. 4. BPH. 5. History of prostate cancer. 6. Diverticulitis. 7. Symptomatic paroxysmal atrial fibrillation with increasing shortness of breath and worsening heart failure started on amiodarone 10/2021 with restorationist of an atrial paced rhythm. 8. Severe left ventricle dysfunction, possibly tachy induced. 9. 2:1 atrial flutter status post flutter ablation 10/2015. 10. Admission to [facility] 03/2019 without progression of his coronary artery disease by cardiac catheterization and documentation of a recurrent atrial arrhythmia status post cardioversion. 11. Status post dual chamber pacemaker (unable to maintain LV placement for a biventricular pacer) with an Maddy MRI compatible device and placement of the RV lead on the high interventricular septum. 12. Status post cardioversion for recurrent 2:1 atrial tachycardia (symptomatic with worsening angina 11/2021). 13. JAIME 11/27/2022 - Left ventricular dilation with moderately reduced systolic function, diffuse hypokinesis, EF 30-35%, S/p 27 mm bioprosthetic aortic valve replacement which appears to be functioning well with mild valvular regurgitation and appropriate gradients, Thickening of the anterior mitral leaflet, most significantly at the A2, scallop with malcoaptation and severe regurgitation at A2/P2. No significant mitral stenosis with a mean gradient of 1 mmHg. The mitral valve measures 5.6 cm2 at the leaflet tips. Mr. Alberto's cardiac history is complex. His coronary disease at this point has limited opportunities for intervention. He appears to be past his event with troponins trending back down and pain improving. He will continue to be treated medically with heparin drip x48 hours and nitro paste. He should also continue his home antianginals with ranolazine and amlodipine. We would not recommend repeat catheterization at this point. I will order a diet for him. He can continue clopidogrel. Blood pressures appear stable. We'll have to watch with the nitro paste as he has had lower-normal pressures in the past. He had been planning to undergo placement of a Mitraclip in [place] on Saturday for his severe mitral valve regurgitation which we will have to reschedule. He does not appear to be in overt heart failure. He has mild pulmonary vascular congestion on his CXR but no weight gain or edema or orthopnea. He can continue his usual home diuretic regimen and Entresto. He is pacing on the monitor. No episodes of fib/flutter on the monitor this admission. His anticoagulants will be resumed after 48 hours of heparin. History of Present Illness Attending Physician: Jasmin Patel MD History of Present Illness Mr. Alberto presented to the ED last night after onset of rest chest pain radiating into his arm and back accompanied by shortness of breath not relieved with nitro. He notes that his home nitro was . He had 2 more doses of nitro in the ambulance. He did not have relief of his pain until he received morphine. This morning he has lingering pain but not as bad as last night and no sob. He has not had any recent weight gain or orthopnea. No edema. Allergies Allergy/AdvReac Type Severity Reaction Status Date / Time ENRIQUE Inhibitors Allergy Cough Verified 12/18/22 15:29 Nitrate Analogues Allergy Unknown Verified 12/18/22 15:29 Home Medications Medication Instructions Recorded Confirmed Type cholecalciferol (vitamin D3) 25 1,000 units PO QPM 10/23/18 12/18/22 History mcg (1,000 unit) tablet flaxseed oil 1,000 mg capsule 1,000 mg PO BID 10/24/18 12/18/22 History nitroglycerin 0.4 mg sublingual 0.4 mg sublingual Q5M PRN chest 10/24/18 12/18/22 History tablet pain #25 tabs apixaban 5 mg tablet 5 mg PO BID 05/18/19 12/18/22 History magnesium oxide 400 mg PO DAILY 05/22/19 12/18/22 History rosuvastatin 20 mg tablet 40 mg PO HS #30 tabs 05/22/19 12/18/22 History furosemide 20 mg tablet 40 mg PO DAILY 09/21/19 12/18/22 History amiodarone 200 mg tablet 200 mg PO QAM 10/23/21 12/18/22 History clopidogrel 75 mg tablet 75 mg PO QAM 12/18/22 12/18/22 History metoprolol succinate 25 mg 25 mg PO HS 12/18/22 12/18/22 History tablet,extended release 24 hr sacubitril 24 mg-valsartan 26 mg 1 tab PO BID 12/18/22 12/18/22 History tablet (Entresto) Patient History Medical History Angina pectoris Diverticulosis H/O solitary pulmonary nodule MRSA (methicillin resistant Staphylococcus aureus) carrier (11/03/15) Myocardial infarction (10/01/19) Sensorineural hearing loss (SNHL) of right ear with restricted hearing of left ear Sudden-onset sensorineural hearing loss Surgical History H/O aortic valve replacement History of coronary artery stent placement (10/02/19) History of prostate surgery S/P CABG x 4 Family History Mother Coronary heart disease Myocardial infarction Heart disease Father Coronary heart disease Hearing loss Brother Cancer Non-small cell cancer of left lung Other No family history of adverse response to anesthesia No family history of bleeding disorder Denies family history of Ovarian cancer Prostate cancer Breast cancer Colorectal cancer Social History Smoking Status: Former smoker Tobacco Type: Cigarettes Second Hand Exposure: No; Do You Dip or Chew Tobacco: No; Hx Alcohol Use: No Hx Substance Use: No Preferred Language: Norwegian Communication Ability: Effective Hearing Ability: Use of Hearing Aid Sales Contract Administrator Required: No Beliefs That Will Affect Care: None marital status: Current Living Situation: Spouse current occupational status: retired Feels Safe at Home: Yes Childhood Exposure to Second-Hand Smoke: Yes Diet: low salt and other caffeine: Yes (soda2-3 cans daily) Dental Care, Regularly: Yes Physical Activity Frequency: Daily Physical Activity Frequency Comment: walk Seatbelt Use: always Sunscreen Use: Yes Assistive Devices: None Review of Systems Review of Systems: All systems reviewed & are unremarkable except as noted in HPI & below Physical Exam Constitutional: WD/WN, vitals as above Cardiovascular: Rate/Rhythm: regular rate and regular rhythm Heart Sounds: + murmur (2/6rusb systolic murmur, 3/6apex systolic murmur) Extremities: no edema Skin: no rashes, warm and dry Neurologic: moves all extremities and awake Psychiatric: A+Ox3, euthymic affect Results & Data Vital Signs (Past 12 Hours) Vital Signs Temp Pulse Pulse Resp BP BP Pulse Ox 12/18/22 08:51 67 21 12/18/22 08:20 65 15 93 12/18/22 08:10 66 15 92 12/18/22 08:03 143/81 H 12/18/22 08:03 75 14 89 L 12/18/22 08:02 79 5 L 12/18/22 07:50 66 16 92 12/18/22 07:40 67 26 H 95 12/18/22 07:30 69 14 92 12/18/22 07:20 66 16 94 12/18/22 07:10 65 11 L 96 12/18/22 09:00 36.8 C 68 149/79 H 94 12/18/22 07:00 64 10 L 92 12/18/22 07:00 129/72 12/18/22 06:50 64 12 94 12/18/22 06:40 65 14 89 L 12/18/22 06:30 63 13 96 12/18/22 06:20 64 16 94 12/18/22 06:10 65 17 93 12/18/22 06:00 64 10 L 94 12/18/22 06:00 122/71 12/18/22 05:50 65 17 94 12/18/22 05:40 65 18 93 12/18/22 05:30 65 19 92 12/18/22 05:20 65 25 H 95 12/18/22 05:10 64 17 94 12/18/22 05:00 65 17 93 12/18/22 05:00 125/72 12/18/22 04:50 64 20 95 12/18/22 04:40 64 17 92 12/18/22 04:30 64 10 L 96 12/18/22 04:20 64 20 96 12/18/22 04:10 63 8 L 97 12/18/22 04:00 64 12 94 12/18/22 04:00 123/71 12/18/22 03:50 64 12 93 12/18/22 03:40 64 11 L 12/18/22 03:30 64 14 93 12/18/22 03:30 121/69 12/18/22 03:00 64 16 120/77 95 12/18/22 02:00 65 16 126/73 95 12/18/22 03:32 12/18/22 02:00 65 12/18/22 01:00 66 16 131/76 94 12/18/22 00:30 65 16 132/75 94 12/18/22 00:00 63 16 125/70 93 12/17/22 23:30 63 16 128/71 92 12/17/22 23:05 62 16 122/70 92 12/17/22 21:46 36.5 C 63 18 120/69 95 12/17/22 22:49 63 12 122/77 93 12/17/22 22:49 63 12 91 Pulse Ox O2 Del Method O2 Del Method 12/18/22 08:51 12/18/22 08:20 12/18/22 08:10 12/18/22 08:03 12/18/22 08:03 12/18/22 08:02 12/18/22 07:50 12/18/22 07:40 12/18/22 07:30 12/18/22 07:20 12/18/22 07:10 12/18/22 09:00 Room Air 12/18/22 07:00 12/18/22 07:00 12/18/22 06:50 12/18/22 06:40 12/18/22 06:30 12/18/22 06:20 12/18/22 06:10 12/18/22 06:00 12/18/22 06:00 12/18/22 05:50 12/18/22 05:40 12/18/22 05:30 12/18/22 05:20 12/18/22 05:10 12/18/22 05:00 12/18/22 05:00 12/18/22 04:50 12/18/22 04:40 12/18/22 04:30 12/18/22 04:20 12/18/22 04:10 12/18/22 04:00 12/18/22 04:00 12/18/22 03:50 12/18/22 03:40 12/18/22 03:30 12/18/22 03:30 12/18/22 03:00 12/18/22 02:00 12/18/22 03:32 96 Room Air 12/18/22 02:00 12/18/22 01:00 12/18/22 00:30 12/18/22 00:00 12/17/22 23:30 12/17/22 23:05 12/17/22 21:46 Room Air 12/17/22 22:49 Room Air 12/17/22 22:49 Room Air
[2022-12-18] MEDS: NITROGLYCERIN 2% OINTMENT 30GM TUBE EXT SCH ×3 (10:16→22:53)
[2022-12-18] MEDS: RANOLAZINE 500 MG ER TAB PO SCH ×2 (12:01→19:57)
[2022-12-18] MEDS: amLODIPine BESYLATE 5 MG TAB PO SCH (12:01)
--- NOTE | 2022-12-18 14:23 | Communication Note ---
Date of Service: December 18, 2022 please refer to the H&P dictated earlier this morning for details of presentation on admission. In brief, this is a patient with extensive cardiac history who presented with chest pain. EKG showed no ST elevations. Troponins elevated. Cardiology involved. Recommends no cardiac catheterization. Recommends medical management with heparin drip for 14 hours and Nitropaste. They also recommend home antianginals with ranolazine and amlodipine. Continue Plavix. The patient is chest pain-free at this time. His blood pressure seems to be stable. He is not volume overloaded. Continue usual diuretic regimen and Entresto.
--- NOTE | 2022-12-18 15:13 | XCELERA ---
[id number] [id number]
--- NOTE | 2022-12-18 15:47 | Electrocardiogram Report ---
Test Reason : Blood Pressure : / mmHG Vent. Rate : 064 BPM Atrial Rate : 064 BPM P-R Int : 000 ms QRS Dur : 176 ms QT Int : 490 ms P-R-T Axes : 069 096 -48 degrees QTc Int : 505 ms Ventricular-paced rhythm Abnormal ECG When compared with ECG of 19-SEP-2016 14:59, Electronic ventricular pacemaker has replaced Sinus rhythm Confirmed by Kapil Hill ([id number]) on 12/18/2022 3:46:34 PM Referred By: REFERRED SELF Confirmed By:Kapil Hill
[2022-12-18] MEDS ORDERED: ROSUVASTATIN CALCIUM 20 MG TAB PO SCH (21:00)
[2022-12-19] MEDS: NITROGLYCERIN 2% OINTMENT 30GM TUBE EXT SCH ×2 (02:24→08:47)
[2022-12-19 06:43] LABS: Hematocrit (blood only) 40.6 % (42.0-52.0); Hemoglobin 13.9 g/dl (14.0-18.0); Mean Corpuscular Hemoglobin 31.8 pg (25.0-34.0); Mean Corpuscular Hgb Conc 34.2 g/dL (32.0-36.0); Mean Corpuscular Volume 92.9 fL (80.0-100.0); Mean Platelet Volume 9.2 fL (9.4-12.4); Platelet Count 118 K/uL (130-400); RDW Coefficient of Variation 13.7 % (11.5-14.5); RDW Standard Deviation 47.1 fL (36.4-46.3); Red Blood Count 4.37 M/uL (4.70-6.10)
[2022-12-19 07:01] LABS: BUN Creatinine Ratio 21.1 (10-20); Calcium 8.9 mg/dl (8.6-10.3); Est GFR (African American) 72.5 ml/min; Est GFR (Non-African American) 62.6 ml/min; Magnesium 2.2 mg/dl (1.7-2.4); Potassium 4.7 mmol/L (3.5-5.1)
[2022-12-19 07:27] LABS: INR 1.1 (0.9-1.1); Partial Thromboplastin Ratio 2.5; Prothrombin Time 11.5 Seconds (9.0-12.0)
[2022-12-19 07:45] LABS: Partial Thromboplastin Time 70.9 Seconds (21.0-31.0)
[2022-12-19] MEDS: AMIODARONE 200 MG TAB PO SCH (08:42)
[2022-12-19] MEDS: RANOLAZINE 500 MG ER TAB PO SCH (08:44)
[2022-12-19] MEDS: VALSARTAN/SACUBITRIL 51/49 MG TAB PO SCH (08:44)
[2022-12-19] MEDS: METOPROLOL SUCC 25MG EXT REL TAB PO SCH (08:46)
[2022-12-19] MEDS: amLODIPine BESYLATE 5 MG TAB PO SCH (08:46)
[2022-12-19] MEDS: MAGNESIUM OXIDE 400 MG TAB PO SCH (08:47)
[2022-12-19] MEDS: FUROSEMIDE 20 MG TAB PO SCH (08:47)
--- NOTE | 2022-12-19 09:40 | Cardiology Progress Note ---
Date of Service December 19, 2022 Assessment & Plan Admission and Anticipated Discharge Date Admission Date: December 18, 2022 Subjective Further angina overnight. He has no resting angina. He denies any shortness of breath or palpitations or fluttering. He has no lightheadedness or dizziness. Overall he notes he is feeling significantly better compared to when he came in the hospital. Results & Data Vital Signs (Past 12 Hours) Vital Signs Temp Pulse Resp BP Pulse Ox O2 Del Method 12/19/22 07:58 36.5 C 71 18 100/59 L 94 Room Air 12/19/22 02:46 36.5 C 69 18 92/55 L 94 Room Air 12/18/22 22:49 36.5 C 70 18 94/59 L 94 Room Air Exam: He is awake alert oriented x3 in no acute distress this morning. 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 Coronary artery disease, status post coronary artery bypass grafting and bioprosthetic aortic valve replacement with a SARMIENTO to LAD, SVG to the OM, SVG to the PDA and an SVG to the diagonal, 06/2011. 2. Status post angioplasty and stenting (08/02/2011) with two Xience drug- eluting stents in the vein graft to D1 and a drug-eluting stent in the distal RCA into the posterolateral branch. a. Status post cardiac catheterization 03/2013 with a 70% RAMUS intermediate branch lesion and a 60% mid LAD lesion, which is not hemodynamically significant by FFR. b. Moderately reduced left ventricular systolic function by echo 04/2018 with an EF in the range of 40%, dilated right ventricle with severe RV dysfunction, type 3 diastolic dysfunction, severe pulmonary hypertension. c. Cardiac catheterization 05/2015 status post angioplasty and stenting of the left main and mid-LAD with a small 70% lesion and a small ramus intermediate branch for medical therapy. d. Cardiac catheterization 10/2016 with greater than 50% stenosis within the stented segment of the vein graft of the first diagonal branch with a focal 70% lesion status post 8 mm drug-eluding stent. e. Status post angioplasty of the vein graft to the diagonal with a noncompliant balloon with a residual 30-40% narrowing (the stent was measured at 2.5 mm by IVUS and a 5-mm vein graft) (at [facility] 06/2017). f. Status post laser therapy and brachytherapy involving the vein graft to the diagonal branch at [facility], 10/2017. g. Status post non-ST elevation myocardial infarction 09/2019 with two drug- eluting stents placed to the ostium of the SVG to the diagonal branch. h. Status post POBA of the ostial portion of the vein graft to D1 (spring 2021). i. Status post brachytherapy of the vein graft to the diagonal branch at [facility] 08/2021. J. Status post angioplasty and stenting with a Cutting Balloon and a high- pressure compliant balloon and involving the proximal mid and distal vein graft to the diagonal branch with associated repeat brachytherapy (September 2022) 3. Hyperlipidemia. 4. BPH. 5. History of prostate cancer. 6. Diverticulitis. 7. Symptomatic paroxysmal atrial fibrillation with increasing shortness of breath and worsening heart failure started on amiodarone 10/2021 with lutheran of an atrial paced rhythm. 8. Severe left ventricle dysfunction, possibly tachy induced. 9. 2:1 atrial flutter status post flutter ablation 10/2015. 10. Admission to [facility] 03/2019 without progression of his coronary artery disease by cardiac catheterization and documentation of a recurrent atrial arrhythmia status post cardioversion. 11. Status post dual chamber pacemaker (unable to maintain LV placement for a biventricular pacer) with an Maddy MRI compatible device and placement of the RV lead on the high interventricular septum. 12. Status post cardioversion for recurrent 2:1 atrial tachycardia (symptomatic with worsening angina 11/2021). 13. JAIME 11/27/2022 - Left ventricular dilation with moderately reduced systolic function, diffuse hypokinesis, EF 30-35%, S/p 27 mm bioprosthetic aortic valve replacement which appears to be functioning well with mild valvular regurgitation and appropriate gradients, Thickening of the anterior mitral leaflet, most significantly at the A2, scallop with malcoaptation and severe regurgitation at A2/P2. No significant mitral stenosis with a mean gradient of 1 mmHg. The mitral valve measures 5.6 cm2 at the leaflet tips. Currently Leo is a very complicated coronary disease history. He has had a multitude of interventions on the vein graft to the diagonal branch. Most recently about 3 months ago and that did not improve his symptoms in any way within a couple of weeks. I discussed them at this point I think his only option for his coronary disease is medical therapy and trying to manage his angina. The challenge as an outpatient is he did not want to take more medication and his blood pressure is relatively low. Additionally he cannot go home with heparin. He was on Eliquis as an outpatient and Plavix already which we will restart today. I would add Isordil 5 mg p.o. twice daily with the intent of increasing it as long as he does not get a headache and is not hypotensive. I tried to correct his medications. As an outpatient his amiodarone dose was 200 mg daily; his Lasix was 40 mg daily; his Entresto is actually low-dose but for now we will leave it where it is as he is tolerating it; his Toprol-XL was 25 mg daily; he was not taking Ranexa nor amlodipine. I did discuss that if his angina continues to be debilitating options include narcotics for pain control. This is something that I would really like to avoid and he notes he does not want to consider narcotics at this point. He is scheduled for Mit[facility]Clip procedure at [facility] next week due to his severe mitral regurgitation which is contributing to his his shortness of breath and RV dysfunction and heart failure symptoms. If he is angina free this evening off heparin and on his current documented medical regiment he could inferior go home. He does not want to stay in the hospital another night if he has an option. If he continues to have symptoms then he should stay overnight and will try to adjust his medical regimen further. We did discuss switching his sublingual nitroglycerin over to nitroglycerin spray which has a faster onset and a longer duration of action. He did not want to do this due to the cost. He will need new sublingual nitroglycerin if he goes home. We did discuss that he can continue to take nitroglycerin prior to his walks in order to avoid anginal symptoms. All this was discussed with Leo and his who was in the room.
[2022-12-19] MEDS ORDERED: APIXABAN 5 MG TABLET PO SCH (09:45)
[2022-12-19] MEDS ORDERED: ISOSORBIDE DINITRATE 5 MG TAB PO SCH (09:45)
--- NOTE | 2022-12-19 16:46 | Discharge Summary ---
Date of Service December 19, 2022 Admission HPI Per Admitting Provider 77yo Male with PMH HTN HLD, hx aortic valve replacement, CAD s/p CABGx4 and stent placement x7, pAfib, aflutter, prostate cancer s/p seed implant here for concern chest pain. Patient states at 6:30pm he noted left sided chest pain radiating down his left arm, left shoulder blade and neck. States it felt similar to his usual episodes of angina, however it did not resolve on its own continued to worsen. Patient took 3 of nitro, received additional 2 nitro on ambulance, did not improve his pain. He also took 4 baby aspirin. Patient states he has some difficult with deep inspiration at this time also starting from this evening, denies any fever abd pain swelling in extremities. He cannot recall any inciting event, had prolonged car ride today, regularly eats low sodium diet prepared by . No recent changes in medications. Patient follows Dr. Burton therapy teacher. In ED patient received morphine 8mg IV total which helped improve his chest pain. Patient states he understands his current condition but may forget shortly, relies on for medication management. He took his eliquis this morning, did not take evening dose. Last procedure Angioplasty with stenting September 2022. Had a recent echo for risa rn mitral valve stenosis, with planned procedure mitral clip next week. Admission Exam Per Admitting Provider Constitutional: well developed, well nourished, cooperative and comfortable Eyes: PERRL, conjunctivae normal, anicteric sclerae ENMT: external ear and nose normal, oropharynx normal Neck: trachea midline, no thyromegaly Respiratory: normal respiratory effort Auscultation: + crackles (inspiratory in b/l lower lungs) Cardiovascular: Rate/Rhythm: regular rate and regular rhythm Extremities: no calf tenderness and no edema Gastrointestinal (Abdomen): Inspection/Auscultation: abdomen normal to inspection Percussion/Palpation: abdomen soft; abdomen nontender Skin: no rashes, warm and dry Principal Diagnosis NSTEMI, medically managed Discharge Exam General: Awake, conversant Heart: S1, S2/regular rate and rhythm, no murmur rubs or gallops Lungs: Clear to auscultation bilaterally. Normal effort Abdomen: Soft/nontender/nondistended. No hepatosplenomegaly Extremities: No clubbing/cyanosis. No edema Behavior: Appropriate, cooperative Discharge Data Allergies Allergy/AdvReac Type Severity Reaction Status Date / Time ENRIQUE Inhibitors Allergy Cough Verified 12/18/22 15:29 Nitrate Analogues Allergy Unknown Verified 12/18/22 15:29 Consultations 12/17/22 23:56 ED Decision to Admit Stat 12/18/22 02:53 Consult Cardiology Routine Hospital Course (1) Chest pain: 77yo Male with PMH HTN HLD, hx aortic valve replacement, CAD s/p CABGx4 and stent placement x7, pAfib, aflutter, pacer, prostate cancer s/p seed implant here for concern chest pain. non-ST elevation TN -in the setting of extensive cardiac history: please see cardiology note -patient received nitrox5 and aspirin 324mg total without improvement of symptoms -received morphine total 8mg IV -trop 9.1 repeat 34.8, repeat pending -EKG: ventricularly paced -CXR: concern for pulmonary edema on left lower lung field -consulted cardiology Dr. Burton -started heparin drip no bolus cardiology decided to medically manage Isordil was added to his list and the dose of Entresto was increased during this hospital stay. The patient was treated with heparin drip for about 24 hours. Cardiology discontinued the heparin drip and observe the patient for several hours. The patient was walking in the room in the hallway without any pain on the current medications Cardiology cleared the patient for discharge with outpatient follow-up HTN, CAD, HF -echo reviewed -continue lasix -continue metoprolol succinate, entresto -continue rosuvastatin -continue plavix - patient does not take amlodipine and ranolazine and thus they were discontinued. Hx. Afib Aflutter -continue amiodarone -hold eliquis -continue heparin drip FENa: heart healthy diet Code Status: Full Dispo: Discharge to home since cardiology cleared (2) CAD (coronary atherosclerotic disease): (3) Hyperlipidemia: (4) Hypertension: (5) Prostate cancer: (6) Atrial flutter: Total Time Total Time Spent Total Time Spent (In Minutes): 35 Discharge Plan Discharge Items Patient Disposition: Home - Self-Care Reason For Visit: CHEST PAIN Discharge Diagnosis: Non-ST elevation TN Activity: Resume your previous activity Non-emergency contact: Primary Care Provider Call non-emergency contact if: you have any medication questions and your symp toms worsen Follow-up/Referrals: Jerry Roman MD [Primary Care Provider] - 12/27/22 3:00 pm (Will see Samantha Paz PA-C in Dr Roman's office) Diet: Heart Healthy Addtl Attending Provider Instructions: Advised to follow-up with PCP in 1 week Advised to follow-up with your therapy teacher in 1 week Pending Studies at Discharge: No Stand-Alone Forms: My [facility] Medications and DC Order Prescriptions: New Entresto 49-51 mg Tablet 1 tab PO BID 30 Days Qty: 60 0RF isosorbide dinitrate 5 mg Tablet 5 mg PO BID 30 Days Qty: 60 0RF Continued amiodarone 200 mg tablet 200 mg PO QAM magnesium oxide 400 mg magnesium capsule 400 mg PO DAILY cholecalciferol (vitamin D3) 1,000 unit (25 mcg) tablet 1,000 units PO QPM nitroglycerin 0.4 mg tablet, sublingual 0.4 mg SL Q5M PRN (Reason: chest pain) Qty: 25 flaxseed oil 1,000 mg capsule 1,000 mg PO BID apixaban 5 mg tablet 5 mg PO BID rosuvastatin 20 mg tablet 40 mg PO HS Qty: 30 furosemide 20 mg tablet 40 mg PO DAILY clopidogrel 75 mg tablet 75 mg PO QAM metoprolol succinate 25 mg tablet extended release 24 hr 25 mg PO HS Discontinued Entresto 24-26 mg tablet 1 tab PO BID Discharge Orders: Discharge Order (Routine); Ordered 12/19/22 Ordered By: Jasmin Patel Admission Data Admit Date/Time: 12/18/22 00:29 Attending Provider: Jasmin Patel Admit Provider: Fidelia Gonzalez Primary Care Provider: Jerry Roman Other Providers: Adalberto Cervantes ; Malcolm Burton Other Interventions: Discharge Summary Assessment (RN) Last Done: 12/19/22 17:11 Coding Level of Care Code 14475 INP/OBS DISCH >30 MIN Diagnoses Chest pain R07.9 CAD (coronary atherosclerotic disease) I25.10 Hyperlipidemia E78.5 Hypertension I10 Prostate cancer C61 Atrial flutter I48.92
[2022-12-20] MEDS ORDERED: AMIODARONE 200 MG TAB PO SCH (09:00)
[2022-12-20] MEDS ORDERED: METOPROLOL SUCC 25MG EXT REL TAB PO SCH (09:00)
== END 2022-12-19 18:19 | disposition home or self-care (01) ==
LOC: ED 21:29 → EDINP 21:29 → SUATTDRO 12-18 00:29 → 2S 12-18 03:00